=== PATIENT | male | born 1945 | race Caucasian/White ===

== ENCOUNTER 2020-06-10 07:28 | Outpatient (REF) | payer MEDICARE, SELFPAY ==
[2020-06-10 11:27] LABS: Estimated Average Glucose 128 mg/dL; Hemoglobin A1c % 6.1 %
[2020-06-10 11:41] LABS: Alanine Aminotransferase 19 U/L (0-40); Albumin Level 4.4 g/dL (3.5-5.0); Alkaline Phosphatase 78 U/L (39-117); Anion Gap 12 (12-20); Aspartate Amino Transferase 23 U/L (5-37); Blood Urea Nitrogen 22 mg/dL (9-16); Calcium 8.8 mg/dL (8.4-10.2); Carbon Dioxide 27 mmol/L (22-29); Chloride 99 mmol/L (96-108); Cholesterol 274 mg/dL; Estimated Glomerular Filt Rate > 60; Glucose Fasting 128 mg/dL (60-99); HDL Cholesterol 60 mg/dL; LDL Cholesterol Calculated 188 mg/dl; Potassium 4.2 mmol/l (3.3-5.1); Sodium 134 mmol/L (135-145); Total Protein 6.9 g/dL (6.5-8.0); Triglycerides 134 mg/dL
[2020-06-10 11:50] LABS: Creatinine Urine 86.67 mg/dL; Microalbumin Urine < 5.0 mg/L
== END 2020-06-10 07:29 | disposition home or self-care (01) ==
LOC: HO.MANLR 07:28
PROVIDERS: PCP Internal Medicine; Visit Provider Internal Medicine
DX: E11.9 Type 2 diabetes mellitus without complications (principal)
CPT/HCPCS: 80053; 80061; 82043; 83036

== ENCOUNTER 2020-09-29 13:52 | Outpatient (REF) | payer MEDICARE, SELFPAY ==
[2020-09-29 17:52] LABS: Estimated Average Glucose 143 mg/dL; Hemoglobin A1c % 6.6 %
[2020-09-29 17:54] LABS: Alanine Aminotransferase 22 U/L (0-40); Albumin Level 4.2 g/dL (3.5-5.0); Alkaline Phosphatase 77 U/L (39-117); Anion Gap 12 (12-20); Aspartate Amino Transferase 22 U/L (5-37); Blood Urea Nitrogen 26 mg/dL (9-16); Calcium 9.3 mg/dL (8.4-10.2); Carbon Dioxide 26 mmol/L (22-29); Chloride 102 mmol/L (96-108); Estimated Glomerular Filt Rate > 60; Glucose Random 95 mg/dL (60-115); Potassium 4.1 mmol/L (3.3-5.1); Sodium 136 mmol/L (135-145); Total Protein 6.7 g/dL (6.5-8.0)
[2020-09-30 08:30] LABS: ~HepC Num1 0.08 S/CO (0.00-0.79); ~Hepatitis C Antibody Nonreactive (Nonreactive)
== END 2020-09-29 13:53 | disposition home or self-care (01) ==
LOC: HO.MANLDS 13:52
PROVIDERS: PCP Internal Medicine; Visit Provider Internal Medicine
DX: Z01.84 Encounter for antibody response examination (principal); E11.9 Type 2 diabetes mellitus without complications
CPT/HCPCS: 36415; 80053; 83036; 86803

== ENCOUNTER 2021-01-05 07:38 | Outpatient (REF) | payer MEDICARE, SELFPAY ==
[2021-01-05 12:03] LABS: Estimated Average Glucose 154 mg/dL
[2021-01-05 12:10] LABS: Alanine Aminotransferase 20 U/L (0-40); Albumin Level 4.1 g/dL (3.5-5.0); Alkaline Phosphatase 78 U/L (39-117); Anion Gap 15 (12-20); Aspartate Amino Transferase 22 U/L (5-37); Blood Urea Nitrogen 24 mg/dL (9-16); Calcium 9.1 mg/dL (8.4-10.2); Carbon Dioxide 23 mmol/L (22-29); Chloride 105 mmol/L (96-108); Cholesterol 259 mg/dL; Estimated Glomerular Filt Rate > 60; Glucose Random 133 mg/dL (60-115); HDL Cholesterol 49 mg/dL; LDL Cholesterol Calculated 178 mg/dl; Potassium 4.5 mmol/L (3.3-5.1); Sodium 138 mmol/L (135-145); Total Protein 6.6 g/dL (6.5-8.0); Triglycerides 162 mg/dL
[2021-01-05 12:12] LABS: Creatinine Urine 93.52 mg/dL; Microalbumin Urine < 5.0 mg/L
== END 2021-01-05 07:39 | disposition home or self-care (01) ==
LOC: HO.MANLDS 07:38
PROVIDERS: PCP Internal Medicine; Visit Provider Internal Medicine
DX: E11.9 Type 2 diabetes mellitus without complications (principal)
CPT/HCPCS: 36415; 80053; 80061; 82043; 83036

== ENCOUNTER 2021-06-01 07:49 | Outpatient (REF) | payer MEDICARE, SELFPAY ==
[2021-06-01 11:23] LABS: Estimated Average Glucose 148 mg/dL; Hemoglobin A1c % 6.8 %
[2021-06-01 11:35] LABS: Creatinine Urine 98.63 mg/dL
[2021-06-01 11:39] LABS: Alanine Aminotransferase 21 U/L (0-40); Albumin Level 4.4 g/dL (3.5-5.0); Alkaline Phosphatase 84 U/L (39-117); Anion Gap 14 (12-20); Aspartate Amino Transferase 24 U/L (5-37); Bilirubin Total 1.3 mg/dL (0.0-1.0); Blood Urea Nitrogen 22 mg/dL (9-16); Calcium 9.6 mg/dL (8.4-10.2); Carbon Dioxide 26 mmol/L (22-29); Chloride 102 mmol/L (96-108); Cholesterol 278 mg/dL; Estimated Glomerular Filt Rate > 60; Glucose Fasting 152 mg/dL (60-99); HDL Cholesterol 50 mg/dL; LDL Cholesterol Calculated 191 mg/dl; Potassium 4.3 mmol/L (3.3-5.1); Sodium 138 mmol/L (135-145); Total Protein 7.1 g/dL (6.5-8.0); Triglycerides 185 mg/dL
== END 2021-06-01 07:50 | disposition home or self-care (01) ==
LOC: HO.MANLDS 07:49
PROVIDERS: PCP Internal Medicine; Visit Provider Internal Medicine
DX: E11.9 Type 2 diabetes mellitus without complications (principal)
CPT/HCPCS: 36415; 80053; 80061; 82043; 83036

== ENCOUNTER 2021-10-06 07:46 | Outpatient (REF) | payer MEDICARE, SELFPAY ==
[2021-10-06 12:13] LABS: Creatinine Urine 90.68 mg/dL; Microalbumin Urine < 5.0 mg/L
[2021-10-06 12:18] LABS: Estimated Average Glucose 174 mg/dL; Hemoglobin A1c % 7.7 %
[2021-10-06 12:22] LABS: Alanine Aminotransferase 22 U/L (0-40); Albumin Level 4.2 g/dL (3.5-5.0); Alkaline Phosphatase 87 U/L (39-117); Anion Gap 12 (12-20); Aspartate Amino Transferase 23 U/L (5-37); Blood Urea Nitrogen 23 mg/dL (9-16); Calcium 10.6 mg/dL (8.4-10.2); Carbon Dioxide 27 mmol/L (22-29); Chloride 101 mmol/L (96-108); Cholesterol 269 mg/dL; Estimated Glomerular Filt Rate > 60; Glucose Fasting 157 mg/dL (60-99); HDL Cholesterol 55 mg/dL; LDL Cholesterol Calculated 180 mg/dl; Potassium 4.4 mmol/L (3.3-5.1); Sodium 136 mmol/L (135-145); Triglycerides 173 mg/dL
== END 2021-10-06 07:47 | disposition home or self-care (01) ==
LOC: HO.MANLDS 07:46
PROVIDERS: PCP Internal Medicine; Visit Provider Internal Medicine
DX: E11.9 Type 2 diabetes mellitus without complications (principal)
CPT/HCPCS: 36415; 80053; 80061; 82043; 83036

== ENCOUNTER 2022-01-04 07:54 | Outpatient (REF) | payer MEDICARE, SELFPAY ==
[2022-01-04 11:11] LABS: Estimated Average Glucose 169 mg/dL; Hemoglobin A1c % 7.5 %
== END 2022-01-04 07:55 | disposition home or self-care (01) ==
LOC: HO.MANLDS 07:54
PROVIDERS: PCP Internal Medicine; Visit Provider Internal Medicine
DX: E11.9 Type 2 diabetes mellitus without complications (principal)
CPT/HCPCS: 36415; 83036

== ENCOUNTER 2022-04-25 07:36 | Outpatient (REF) | payer MEDICARE, SELFPAY ==
[2022-04-25 11:52] LABS: Alanine Aminotransferase 24 U/L (0-40); Albumin Level 4.1 g/dL (3.5-5.0); Alkaline Phosphatase 86 U/L (39-117); Anion Gap 15 (12-20); Aspartate Amino Transferase 21 U/L (5-37); Bilirubin Total 0.8 mg/dL (0.0-1.0); Blood Urea Nitrogen 17 mg/dL (9-16); Calcium 9.1 mg/dL (8.4-10.2); Carbon Dioxide 27 mmol/L (22-29); Chloride 104 mmol/L (96-108); Cholesterol 244 mg/dL; Estimated Glomerular Filt Rate > 60; Glucose Random 169 mg/dL (60-115); HDL Cholesterol 55 mg/dL; LDL Cholesterol Calculated 164 mg/dl; Potassium 4.6 mmol/L (3.3-5.1); Sodium 141 mmol/L (135-145); Total Protein 6.8 g/dL (6.5-8.0); Triglycerides 129 mg/dL
[2022-04-25 11:57] LABS: Estimated Average Glucose 169 mg/dL; Hemoglobin A1c % 7.5 %
[2022-04-25 12:10] LABS: Creatinine Urine 224.72 mg/dL; Microalbum/Creatinine Ratio Ur 5.7 ug/mg cr
== END 2022-04-25 07:37 | disposition home or self-care (01) ==
LOC: HO.MANLDS 07:36
PROVIDERS: Visit Provider Internal Medicine
DX: E11.9 Type 2 diabetes mellitus without complications (principal)
CPT/HCPCS: 36415; 80053; 80061; 82043; 83036

== ENCOUNTER 2022-05-13 15:46 | Outpatient (REF) | payer MEDICARE, SELFPAY | END 2022-05-13 15:47 | disposition home or self-care (01) | LOC: HO.MANLDS 15:46 | PROVIDERS: Visit Provider Internal Medicine | DX: Z13.89 Encounter for screening for other disorder (principal) ==

== ENCOUNTER 2022-09-06 08:04 | Outpatient (REF) | payer MEDICARE, SELFPAY ==
[2022-09-06 12:13] LABS: Alanine Aminotransferase 21 U/L (0-40); Alkaline Phosphatase 98 U/L (39-117); Anion Gap 14 (12-20); Aspartate Amino Transferase 19 U/L (5-37); Bilirubin Total 0.9 mg/dL (0.0-1.0); Blood Urea Nitrogen 27 mg/dL (9-16); Calcium 9.2 mg/dL (8.4-10.2); Carbon Dioxide 27 mmol/L (22-29); Chloride 104 mmol/L (96-108); Cholesterol 244 mg/dL; Estimated Glomerular Filt Rate > 60; Glucose Random 227 mg/dL (60-115); HDL Cholesterol 51 mg/dL; LDL Cholesterol Calculated 164 mg/dl; Potassium 4.7 mmol/L (3.3-5.1); Sodium 140 mmol/L (135-145); Total Protein 6.5 g/dL (6.5-8.0); Triglycerides 147 mg/dL
[2022-09-06 12:19] LABS: Estimated Average Glucose 223 mg/dL; Hemoglobin A1c % 9.4 %
[2022-09-07 09:02] LABS: Lyme Abs Screen <0.90 index
== END 2022-09-06 08:05 | disposition home or self-care (01) ==
LOC: HO.MANLDS 08:04
PROVIDERS: Visit Provider Internal Medicine
DX: M25.50 Pain in unspecified joint (principal); E11.9 Type 2 diabetes mellitus without complications
CPT/HCPCS: 36415; 80053; 80061; 83036; 86617; 86618

== ENCOUNTER 2022-11-22 07:31 | Outpatient (REF) | payer MEDICARE, SELFPAY ==
[2022-11-22 11:32] LABS: Estimated Average Glucose 177 mg/dL; Hemoglobin A1c % 7.8 %
[2022-11-22 11:51] LABS: Erythrocyte Sedimentation Rate 5 MM/HR (0-15)
[2022-11-22 12:24] LABS: Alanine Aminotransferase 23 U/L (0-40); Albumin Level 4.1 g/dL (3.5-5.0); Alkaline Phosphatase 78 U/L (39-117); Anion Gap 12 (12-20); Aspartate Amino Transferase 21 U/L (5-37); Bilirubin Total 1.1 mg/dL (0.0-1.0); Blood Urea Nitrogen 22 mg/dL (9-16); Calcium 9.2 mg/dL (8.4-10.2); Carbon Dioxide 27 mmol/L (22-29); Chloride 105 mmol/L (96-108); Estimated Glomerular Filt Rate > 60; Glucose Random 164 mg/dL (60-115); Potassium 4.7 mmol/L (3.3-5.1); Sodium 139 mmol/L (135-145); Total Protein 6.5 g/dL (6.5-8.0)
[2022-11-24 08:38] LABS: Lyme Abs Screen <0.90 index
[2022-11-29 14:08] LABS: Babesia IgG <1:64 titer (<1:64); Babesia IgM 1:20 titer (<1:20)
== END 2022-11-22 07:32 | disposition home or self-care (01) ==
LOC: HO.MANLDS 07:31
PROVIDERS: Visit Provider Internal Medicine
DX: E11.9 Type 2 diabetes mellitus without complications (principal); R53.83 Other fatigue
CPT/HCPCS: 80053; 83036; 85652; 86617; 86618; 86666; 86753

== ENCOUNTER 2023-03-22 07:40 | Outpatient (REF) | payer MEDICARE, SELFPAY ==
[2023-03-22 14:08] LABS: Estimated Average Glucose 146 mg/dL; Hemoglobin A1c % 6.7 %
[2023-03-22 14:28] LABS: Alanine Aminotransferase 16 U/L (0-40); Albumin Level 4.1 g/dL (3.5-5.0); Alkaline Phosphatase 66 U/L (39-117); Anion Gap 15 (12-20); Aspartate Amino Transferase 20 U/L (5-37); Blood Urea Nitrogen 25 mg/dL (9-16); Calcium 9.8 mg/dL (8.4-10.2); Carbon Dioxide 25 mmol/L (22-29); Chloride 105 mmol/L (96-108); Estimated Glomerular Filt Rate > 60; Glucose Random 147 mg/dL (60-115); Potassium 4.7 mmol/L (3.3-5.1); Sodium 140 mmol/L (135-145)
== END 2023-03-22 07:41 | disposition home or self-care (01) ==
LOC: HO.MANLDS 07:40
PROVIDERS: Visit Provider Internal Medicine
DX: E11.9 Type 2 diabetes mellitus without complications (principal); R53.83 Other fatigue
CPT/HCPCS: 36415; 80053; 83036

== ENCOUNTER 2023-06-26 07:33 | Outpatient (REF) | payer MEDICARE, SELFPAY ==
[2023-06-26 13:50] LABS: Estimated Average Glucose 157 mg/dL; Hemoglobin A1c % 7.1 % (<6.0)
== END 2023-06-26 07:34 | disposition home or self-care (01) ==
LOC: HO.MANLDS 07:33
PROVIDERS: Visit Provider Internal Medicine
DX: E11.9 Type 2 diabetes mellitus without complications (principal)
CPT/HCPCS: 36415; 83036

== ENCOUNTER 2023-09-05 07:27 | Outpatient (REF) | payer MEDICARE, SELFPAY ==
[2023-09-05 13:56] LABS: MANUAL DIFF FLAG NO
[2023-09-05 14:03] LABS: Basophils Absolute Auto 0.1 X10*3/uL (0.0-0.2); Eosinophils Absolute Auto 0.4 X10*3/uL (0.0-0.4); Eosinophils Percent Auto 6.9 % (0-4); Hematocrit 42.6 % (42.0-52.0); Hemoglobin 14.4 g/dl (14.0-18.0); Imm Gran Abs Auto 0.01 X10*3/uL (0.00-0.03); Imm Gran Pct Auto 0.2 % (0.0-0.4); Lymphocytes Absolute Auto 1.4 X10*3/uL (1.2-4.9); Lymphocytes Percent Auto 24.6 % (20-40); Mean Corpuscular HGB Conc 33.8 g/dl (31.0-36.0); Mean Corpuscular Hemoglobin 33.6 pg (27.0-33.0); Mean Corpuscular Volume 99.3 fL (80.0-98.0); Mean Platelet Volume 10.5 fL (9.4-12.4); Monocytes Absolute Auto 0.4 X10*3/uL (0.1-1.2); Monocytes Percent Auto 7.3 % (2-11); Neutrophils Absolute Auto 3.5 x10*3/uL (2.0-8.3); Platelet Count 160 X10*3/uL (160-400); Red Blood Count 4.29 X10*6/uL (4.60-5.80); Red Cell Distribution Width 12.1 % (11.0-16.0); White Blood Count 5.8 X10*3/uL (4.8-10.8)
[2023-09-05 14:21] LABS: Estimated Average Glucose 174 mg/dL; Hemoglobin A1c % 7.7 % (<6.0)
[2023-09-05 15:05] LABS: Alanine Aminotransferase 20 U/L (0-40); Alkaline Phosphatase 78 U/L (39-117); Anion Gap 12 (12-20); Aspartate Amino Transferase 23 U/L (5-37); Bilirubin Total 0.9 mg/dL (0.0-1.0); Blood Urea Nitrogen 29 mg/dL (9-16); Calcium 9.2 mg/dL (8.4-10.2); Carbon Dioxide 27 mmol/L (22-29); Chloride 101 mmol/L (96-108); Cholesterol 239 mg/dL (<200); Estimated Glomerular Filt Rate > 60; Glucose Random 168 mg/dL (60-115); HDL Cholesterol 53 mg/dL (>40); LDL Cholesterol Calculated 162 mg/dL (<100); Potassium 4.4 mmol/L (3.3-5.1); Sodium 136 mmol/L (135-145); Total Protein 6.8 g/dL (6.5-8.0); Triglycerides 120 mg/dL (<150)
[2023-09-05 15:08] LABS: Prostate Specific Antigen 0.31 ng/mL (<0.05-4.0)
== END 2023-09-05 07:28 | disposition home or self-care (01) ==
LOC: HO.MANLDS 07:27
PROVIDERS: Visit Provider Internal Medicine
DX: E11.9 Type 2 diabetes mellitus without complications (principal); E78.00 Pure hypercholesterolemia, unspecified; Z12.5 Encounter for screening for malignant neoplasm of prostate
CPT/HCPCS: 36415; 80053; 80061; 83036; 84153; 85025

== ENCOUNTER 2023-12-18 07:33 | Outpatient (REF) | payer MEDICARE, SELFPAY ==
[2023-12-18 13:17] LABS: MANUAL DIFF FLAG NO
[2023-12-18 13:56] LABS: Basophils Absolute Auto 0.1 X10*3/uL (0.0-0.2); Eosinophils Absolute Auto 0.4 X10*3/uL (0.0-0.4); Eosinophils Percent Auto 6.3 % (0-4); Hemoglobin 15.8 g/dl (14.0-18.0); Imm Gran Abs Auto 0.02 X10*3/uL (0.00-0.03); Imm Gran Pct Auto 0.3 % (0.0-0.4); Lymphocytes Absolute Auto 1.4 X10*3/uL (1.2-4.9); Lymphocytes Percent Auto 23.2 % (20-40); Mean Corpuscular HGB Conc 34.3 g/dl (31.0-36.0); Mean Corpuscular Hemoglobin 33.9 pg (27.0-33.0); Mean Corpuscular Volume 98.7 fL (80.0-98.0); Mean Platelet Volume 10.5 fL (9.4-12.4); Monocytes Absolute Auto 0.5 X10*3/uL (0.1-1.2); Neutrophils Absolute Auto 3.7 x10*3/uL (2.0-8.3); Neutrophils Percent Auto 61.2 % (45-73); Platelet Count 171 X10*3/uL (160-400); Red Blood Count 4.66 X10*6/uL (4.60-5.80)
[2023-12-18 14:01] LABS: Estimated Average Glucose 174 mg/dL; Hemoglobin A1c % 7.7 % (<6.0)
[2023-12-18 14:09] LABS: Prostate Specific Antigen 0.31 ng/mL (<0.05-4.0)
[2023-12-18 14:13] LABS: Alanine Aminotransferase 21 U/L (0-40); Albumin Level 4.4 g/dL (3.5-5.0); Alkaline Phosphatase 81 U/L (39-117); Anion Gap 16 (12-20); Aspartate Amino Transferase 23 U/L (5-37); Bilirubin Total 0.8 mg/dL (0.0-1.0); Blood Urea Nitrogen 21 mg/dL (9-16); Calcium 10.2 mg/dL (8.4-10.2); Carbon Dioxide 26 mmol/L (22-29); Chloride 103 mmol/L (96-108); Cholesterol 253 mg/dL (<200); Estimated Glomerular Filt Rate > 60; Glucose Random 158 mg/dL (60-115); HDL Cholesterol 57 mg/dL (>40); LDL Cholesterol Calculated 167 mg/dL (<100); Potassium 4.4 mmol/L (3.3-5.1); Sodium 141 mmol/L (135-145); Total Protein 7.5 g/dL (6.5-8.0); Triglycerides 148 mg/dL (<150)
== END 2023-12-18 07:34 | disposition home or self-care (01) ==
LOC: HO.MANLDS 07:33
PROVIDERS: Visit Provider Internal Medicine
DX: Z12.5 Encounter for screening for malignant neoplasm of prostate (principal); E78.00 Pure hypercholesterolemia, unspecified
CPT/HCPCS: 36415; 80053; 80061; 83036; 84153; 85025

== ENCOUNTER 2024-04-12 07:43 | Outpatient (REF) | payer MEDICARE, SELFPAY ==
[2024-04-12 11:12] LABS: MANUAL DIFF FLAG NO
[2024-04-12 11:22] LABS: Basophils Absolute Auto 0.1 X10*3/uL (0.0-0.2); Basophils Percent Auto 0.9 % (0-2); Eosinophils Absolute Auto 0.3 X10*3/uL (0.0-0.4); Eosinophils Percent Auto 5.8 % (0-4); Hematocrit 42.6 % (42.0-52.0); Hemoglobin 14.6 g/dl (14.0-18.0); Imm Gran Abs Auto 0.01 X10*3/uL (0.00-0.03); Imm Gran Pct Auto 0.2 % (0.0-0.4); Lymphocytes Absolute Auto 1.4 X10*3/uL (1.2-4.9); Lymphocytes Percent Auto 25.9 % (20-40); Mean Corpuscular HGB Conc 34.3 g/dl (31.0-36.0); Mean Corpuscular Hemoglobin 33.5 pg (27.0-33.0); Mean Corpuscular Volume 97.7 fL (80.0-98.0); Mean Platelet Volume 10.4 fL (9.4-12.4); Monocytes Absolute Auto 0.4 X10*3/uL (0.1-1.2); Monocytes Percent Auto 7.5 % (2-11); Neutrophils Absolute Auto 3.3 x10*3/uL (2.0-8.3); Neutrophils Percent Auto 59.7 % (45-73); Platelet Count 147 X10*3/uL (160-400); Red Blood Count 4.36 X10*6/uL (4.60-5.80); Red Cell Distribution Width 11.9 % (11.0-16.0); White Blood Count 5.5 X10*3/uL (4.8-10.8)
[2024-04-12 12:02] LABS: Alanine Aminotransferase 18 U/L (0-40); Albumin Level 4.1 g/dL (3.5-5.0); Alkaline Phosphatase 81 U/L (39-117); Anion Gap 11 (12-20); Aspartate Amino Transferase 21 U/L (5-37); Blood Urea Nitrogen 21 mg/dL (9-16); Calcium 9.6 mg/dL (8.4-10.2); Carbon Dioxide 27 mmol/L (22-29); Chloride 105 mmol/L (96-108); Cholesterol 247 mg/dL (<200); Estimated Glomerular Filt Rate > 60; Glucose Random 166 mg/dL (60-115); HDL Cholesterol 51 mg/dL (>40); LDL Cholesterol Calculated 163 mg/dL (<100); Potassium 4.3 mmol/L (3.3-5.1); Sodium 139 mmol/L (135-145); Total Protein 6.8 g/dL (6.5-8.0); Triglycerides 169 mg/dL (<150)
[2024-04-12 12:31] LABS: Estimated Average Glucose 171 mg/dL; Hemoglobin A1c % 7.6 % (<6.0)
== END 2024-04-12 07:44 | disposition home or self-care (01) ==
LOC: HO.WFDLDS 07:43
PROVIDERS: Visit Provider Internal Medicine
DX: Z13.89 Encounter for screening for other disorder (principal)
CPT/HCPCS: 36415; 80053; 80061; 83036; 85025

== ENCOUNTER 2024-12-02 10:05 | Outpatient (REF) | payer MEDICARE, SELFPAY ==
--- OUTSIDE RECORDS SUMMARY | 2024-12-02 10:12 | XMS_ITS | Data Portability ---
Author Organization [facility] Home Service Address [address] [place] [address] Assessment Encounter Date Assessment Date Assessment LastModified by Organization Details LastModified Time 01/15/2024 01/15/2024 [id number] [place] [id number] (DURABLE MEDICAL EQUIPMENT TECHNICIAN) MDM MODERATE MUST MEET 2 OUT OF 3 ELEMENTS: PROBLEMS, DATA OR RISK ELEMENT 1: PROBLEMS ADDRESSED 1 OR MORE CHRONIC ILLNESS WITH EXACERBATION OR 2 OR MORE STABLE CHRONIC ILLNESSES OR 1 UNDIAGNOSED NEW PROBLEM OR 1 ACUTE ILLNESS W/SYMPTOMS OR 1 ACUTE COMPLICATED INJURY ELEMENT 2: DATA MUST MEET 1 OF 3 CATEGORIES CATEGORY 1: REVIEW OF PRIOR EXTERNAL NOTES, REVIEW OF RESULTS, ORDERING OF EACH TEST, ASSESSMENT REQUIRING INDEPENDENT HISTORIAN OR CATEGORY 2: INDEPENDENT INTERPRETATION OF TESTS BY ANOTHER PHYSICIAN OR SPECIALIST OR CATEGORY 3: DISCUSSION OF MGT OR TEST INTERPRETATION W/EXTERNAL PHYSICIAN OR SPECIALIST ELEMENT 3: RISK RISK OF COMPLICATIONS AND/OR MORBIDITY OR MORTALITY OF PATIENT MANAGEMENT PROVIDER MUST THOROUGHLY DOCUMENT EACH ELEMENT THAT IS COVERED Not available 01/15/2024 15:45:22 04/26/2024 04/26/2024 Patient presente d to office today for their Medicare Annual Wellness Visit. Education was provided on healthy nutrition, including a diet rich in fruits and vegetables, minimizing simple carbohydrates, salt, and saturated fats. Encouraged regular cardiovascular exercise such as walking at least 30 minutes daily, 5 times per week. Emphasized preventive health measures and educated pt on fall prevention and community-based lifestyle interventions to help reduce health risks and promote healthy living. [email or web address] Not available 04/25/2024 08:09:51 10/25/2024 10/25/2024 [address] [place] [address] (DURABLE MEDICAL EQUIPMENT TECHNICIAN) MDM HIGH MUST MEET 2 OUT OF 3 ELEMENTS: PROBLEMS, DATA OR RISK ELEMENT 1: PROBLEMS 1 OR MORE CHRONIC ILLNESS W/SEVERE EXACERBATION, PROGRESSION MAY REQUIRE HOSPITAL LEVEL CARE OR 1 ACUTE OR CHRONIC ILLNESS OR INJURY THAT POSES A THREAT TO LIFE OR BODILY FUNCTION ELEMENT 2: DATA: MUST MEET 2 OF 3 CATEGORIES CATEGORY 1 REVIEW OF PRIOR EXTERNAL NOTES REVIEW OF THE RESULTS ORDERING OF EACH TEST ASSESSMENT REQUIRING INDEPENDENT HISTORIAN(S) CATEGORY 2: INDEPENDENT INTERPRETATION OF TESTS BY ANOTHER PROVIDER/SPECIALI ST CATEGORY 3: DISCUSSION OF MGT OR TEST INTERPRETATION W/EXTERNAL PHYSICIAN/SPECIAL IST ELEMENT 3: RISK HIGH RISK OF MORBIDITY FROM ADDITIONAL DIAGNOSTIC TESTING OR TREATMENT PROVIDER MUST THOROUGHLY DOCUMENT EACH ELEMENT THAT IS COVERED The patient presented to their appointment today for multiple concerns requiring moderate to high-level decision making and took over 40-45 minutes for an adequate and appropriate history, exam, assessment and treatment plan. This appointment was done with an established patient. Not available 10/25/2024 15:16:41 Plan of Treatment Reminders Order Date Submit Date Provider Last Modified By Organization Details Last Modified Time Details Appointments FOLLOW UP 2024 03:45P M DR ROMAN Not available Not available Not available Lab TSH + free T4, serum 2024 025 [email or web address] [facility] (Centralized Electronic Ordering - All Locations), Patient Can Go To The Location Of Their Choice, 09/11/2024 14:22:09 magnesium , serum or plasma 2024 025 rtryba [facility] (Centralized Electronic Ordering - All Locations), Patient Can Go To The Location Of Their Choice, 09/11/2024 14:22:09 D-dimer, quant, plasma 2024 025 rtryba [facility] (Centralized Electronic Ordering - All Locations), Patient Can Go To The Location Of Their Choice, 09/11/2024 14:22:09 pro BNP (pro B-type natriuret ic peptide), serum or plasma 2024 025 rtryba [facility] (Centralized Electronic Ordering - All Locations), Patient Can Go To The Location Of Their Choice, 09/11/2024 14:22:09 CMP, serum or plasma 2024 025 PORTIA [facility] (Centralized Electronic Ordering - All Locations), Patient Can Go To The Location Of Their Choice, 09/12/2024 16:45:54 hemoglobi n A1c, QN, blood 2024 025 rtryba [facility] (Centralized Electronic Ordering - All Locations), Patient Can Go To The Location Of Their Choice, [facility] 09/11/2024 14:22:09 CBC w/ auto diff 2024 025 rtryba [facility] (Centralized Electronic Ordering - All Locations), Patient Can Go To The Location Of Their Choice, [id number] 09/11/2024 14:22:09 erythrocy te sedimenta tion rate by westergre n method 2023 024 ATHENAX [facility] (Centralized Electronic Ordering - All Locations), Patient Can Go To The Location Of Their Choice, 04/26/2024 15:12:56 C-reactiv e protein, quantitat bc, serum or plasma 2023 ATHENAFAX [facility] (Centralized Electronic Ordering - All Locations), Patient Can Go To The Location Of Their Choice, [id number] 04/26/2024 15:12:56 hla-B27, blood 2023 024 PORTIA [facility] (Centralized Electronic Ordering - All Locations), Patient Can Go To The Location Of Their Choice, [facility] 07/20/2024 07:48:30 lipid panel, blood 2023 [facility], [address] [place] [address], [place], [address], 04/26/2024 14:20:31 hemoglobi n, gastroint estinal, stool 2023 024 [facility], [address] [place] [address], [address], 04/26/2024 14:20:31 CBC w/ auto diff 2023 024 [facility], [address] [place] [address], [address], 04/26/2024 14:20:31 CMP, serum or plasma 2023 024 [facility], [facility], [place], [address], 04/26/2024 14:20:31 Referral general surgeon referral 2024 jaimie Esparza MD, [address], [place], [address], 10/29/2024 08:28:38 Procedures None recorded. Surgeries None recorded. Imaging MRI, lumbar spine, w/o contrast 2024 025 [facility], [address] [place], [address], 11/19/2024 08:09:10 MRI, brain, w/o contrast - 2nd fax- original sent 11/01/24. Pt has not been called to schedule 2024 025 [facility], [facility] [place], [address], 11/19/2024 08:09:10 CT, chest, w/wo contrast 2024 025 [facility], [address] [place] [address], [address], 09/13/2024 09:12:03 electroca rdiogram, routine ECG, 12 leads min 2024 025 [facility], [address] [facility], [address], [place], [address], 09/13/2024 11:28:25 US, duplex, arterial, lower extremity , complete - progressi ve intermitt ent claudicat ion 2023 024 [facility], [facility] [place], [address], 01/30/2024 16:02:59 Medication Orders tadalafil 20 mg tablet 2023 024 [id number], [address] [facility] [address], [place], [address], 04/26/2024 14:48:05 Patient TargetsNo targets recorded. Patient Instructions Encounter Date Encounter Id Patient Instructions Last Modified By Organization Details Last Modified Time 01/15/2024 [id number] learning about type 2 diabetes Not available 01/15/2024 15:45:01 type 2 diabetes: care instructions Not available 01/15/2024 15:45:01 04/26/2024 [id number] advance care planning: care instructions Not available 04/26/2024 14:15:22 Discussed and explained advance directives such as standard forms to the {{patient* caregi andressa patient and caregiver}}. Face to face discussion lasted for a duration of _8__ minutes. Not available 04/26/2024 14:15:04 10/25/2024 [id number] headache: care instructions [email or web address] Not available 10/25/2024 15:14:59 Reason for Referral General Surgeon Referral for Cyst of abdomen Referring Physician: Kade Roman, Internal Medicine, Encounter Date: 10/25/2024 Results Created Date Observation Date Name Description Value Unit Range Abnormal Flag Note LastModifiedBy Organization Detail LastModifiedTime 02/12/20 24 02/12/2024 US, olesyale x, arter ial, lower extre mity, compl ete No observ ation record ed. [facility] [address], [address], 02/12/2024 22:48:23 09/13/19 25 09/13/2024 elect deepthi massey am, routjag ne ECG, 12 leads min No observ ation record ed. [email or web address] [facility] [address] [place], [address], 09/13/2024 11:37:47 09/23/19 25 09/23/2024 CT, chest , w/ contr ast No observ ation record ed. [email or web address] [facility] [address] [place], [address], 09/25/2024 16:32:04 11/29/19 25 11/25/2024 MRI, brain , w/o contr ast No observ ation record ed. [facility] [address] [facility], [place], [address], 11/28/2024 21:58:05 Result Notes None recorded. Problems Name Problem SNOMED Code Status Onset Date Resolution Date Notes Provider Name and Address Organization Details Recorded Time Impaired fasting glycemia 149902896 Completed 201704/29/2019 Kade Roman, DO [address] [place] [address], [phone], [facility] 9 14:13:08 Type 2 diabetes mellitus 34198404 Active 12/22 Jen mayen [facility] 5 09:05:14 Eczema 29346940 Active 2018 Jen mayen [facility] 5 09:05:14 Low back pain 340396177 Active 2020 Not Available [facility] 3 15:02:30 Hypercho lesterol emia 49148135 Active 2020 Not Available [facility] 3 15:02:30 Deep venous thrombos is of lower extremit y 735734977 Completed 202101/12/2022 Removal Reason: resolved Kade Roman, DO [address] [place] [address], [phone], [facility] 2 14:03:44 Primary erectile dysfunct ion 515617247 Active 2021 Jen mayen [facility] 5 09:05:14 Diffuse pain 4796881 Active 2021 Jen mayen [facility] 5 09:05:14 Infectio n of tooth 979372835 Active 2021 Jen mayen [facility] 5 09:05:22 Chronic sinusiti s 91463651 Active 2021 Jen mayen [facility] 5 09:05:14 Osteoart hritis 161673958 Active 2021 Jenricki Muhammad null, [facility] 5 09:05:14 Gingivit is 77831562 Active 2022 Jenricki Muhammad null, [facility] 5 09:05:22 Deep venous thrombos is of lower extremit y 131251161 Active 2022 Jen Muhammad null, [facility] 5 09:05:14 Anxiety 64437770 Active 2022 Jenricki Muhammad null, [facility] 5 09:05:14 Fatigue 57398215 Active 2022 Jenricki Muhammad null, [facility] 5 09:05:22 Lacerati on of finger of right hand 5840096555 5205539 Active 2022 Jen Muhammad null, [facility] 5 09:05:22 Erectile dysfunct ion 210958707 Active 2022 Jenricki Muhammad null, [facility] 5 09:05:14 Type 2 diabetes mellitus without complica tion 305427901 Active 2023 Jen Muhammad null, [facility] 5 09:05:14 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 42153 Active 2023 Jen Muhammad null, [facility] 5 09:05:14 Intermit tent claudica tion 68312301 Active 2023 Jen Muhammad null, [facility] 5 09:05:14 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 2023 Jen Muhammad null, [facility] 5 09:05:14 Cough 85013961 Active 2024 Jen Muhammad null, [facility] 5 09:05:22 Neuropat hy 301674874 Active 2024 Jen Muhammad null, [facility] 5 09:05:14 Atypical chest pain 393009113 Active 2024 Jen Muhammad null, [facility] 5 09:05:14 Tachycar frederic 4859912 Active 2024 Jenricki Muhammad null, [facility] 5 09:05:14 Muscle pain 50905394 Active 2024 Jenricki Muhammad null, [facility] 5 09:05:14 Excessiv e thirst 08047635 Active 2024 Jenricki Muhammad null, [facility] 5 09:05:22 Weakness of bilatera l lower limb Active 2024 Kade Roman, DO [address] [place] [address], [phone], [facility] 5 15:05:19 Headache 78715971 Active 2024 Kade Roman, DO [address] [place] [address], [phone], [place] [facility] 5 15:05:48 Cyst of abdomen 400850829 Active 2024 Kade Roman, DO [address] [place] [address], [phone], [place] [facility] 5 15:19:27 Problem Notes None recorded. Procedures Surgical History Date Name Laterality Status Provider Name and Address Organization Details Recorded Time 3 Suture/Stap le removal completed ALEXSANDER SABILLON [address] [facility], [place], [address], [place] [facility] 02/15/2023 16:27:37 Imaging Results Imaging Date Name Status LastModified by Organiz ation Details LastModified Time 02/12/2024 US, duplex, arterial, lower extremity, complete completed [facility] [address] [place] [address], [address], 02/12/2024 22:48:23 09/13/2024 electrocardio gram, routine ECG, 12 leads min completed [email or web address] [facility] [address] [place], [address], 09/13/2024 11:37:47 09/23/2024 CT, chest, w/ contrast completed [email or web address] [facility] [address] [place], [address], 09/25/2024 16:32:04 11/25/2024 MRI, brain, w/o contrast completed [facility] [address] [place], [address], 11/28/2024 21:58:05 Procedure Notes None recorded. Medical Equipment None Reported. Allergies Allergen ID Allergen Name Allergen Category Reaction Reaction Severity Criticality Documentation Date Start Date Code Code System Note Provider Name and Address Organization Details Recorded Time 2129 codeine medicatio n Not available Not available Not available 03/26/2018 2670 RxNorm Dennise mayen [facility] 8 16:10:07 2130 Product containin g 3-hydroxy -3-methyl glutaryl- coenzyme A reductase inhibitor (product) medicatio n Not available Not available Not available 03/26/2018 98546 009 SNOMED Dennise mayen [facility] 8 16:10:15 8702 Zithromax medicatio n Not available Not available Not available 09/11/2024 72751 4 RxNorm ALEXSANDER SABILLON [address] [place], [address], [facility] 5 14:17:27 Medications Name Sig Start Date Stop Date Status Note LastModified by Organization Details LastModified Time Prescriptio n - Prior Authorizati on Request 04/29 completed Not Available Not Available Not Available amoxicillin 500 mg capsule TAKE 1 CAPSULE BY MOUTH THREE TIMES A DAY FOR 10 DAYS 11/14 completed Not Available Not Available Not Available doxycycline hyclate 100 mg capsule TAKE 1 CAPSULE BY MOUTH TWICE A DAY FOR 7 DAYS 09/11 completed Not Available Not Available Not Available clindamycin HCl 300 mg capsule TAKE 1 CAPSULE BY MOUTH EVERY 6 HOURS FOR 10 DAYS 04/26 completed Not Available Not Available Not Available sildenafil 50 mg tablet Take 1 tablet every day by oral route for 30 days. 06/11 completed Not Available Not Available Not Available azithromyci n 250 mg tablet TAKE 2 TABLETS BY MOUTH TODAY, THEN TAKE 1 TABLET DAILY FOR 4 DAYS DIRECTED 09/11 completed Not Available Not Available Not Available benzonatate 200 mg capsule TAKE 1 CAPSULE 3 TIMES A DAY BY ORAL ROUTE FOR 7 DAYS, FOR COUGH. 09/11 completed Not Available Not Available Not Available valacyclovi r 1 gram tablet Take 1 tablet 3 times a day by oral route for 14 days. 04/29 completed Not Available Not Available Not Available meloxicam 15 mg tablet TAKE 1 TABLET BY MOUTH EVERY DAY active Not Available Not Available No t Available prednisone 20 mg tablet 07/31 completed Not Available Not Available Not Available fluorouraci l 5 % topical cream APPLY 0.3 GRAM ON THE SKIN DIRECTED FOLLOW WRITTEN INSTRUCTI ONS GIVEN TO YOU AT THE OFFICE VISIT active Not Available Not Available No t Available permethrin 5 % topical cream 10/11 completed Not Available Not Available Not Available amlodipine 5 mg tablet TAKE 1 TABLET BY MOUTH EVERY DAY 11/14 completed Not Available Not Available Not Available sildenafil 100 mg tablet TAKE 1 TABLET BY MOUTH EVERY DAY FOR 30 DAYS 01/14 completed Not Available Not Available Not Available triamcinolo ne acetonide 0.1 % topical cream APPLY THIN COAT TO AFFECTED AREA TWICE A DAY active Not Available Not Available No t Available acetaminoph en ER 650 mg tablet,exte nded release PLEASE SEE ATTACHED FOR DETAILED DIRECTION S 10/10 completed Not Available Not Available Not Available lorazepam 0.5 mg tablet TAKE 1 TABLET BY MOUTH TWICE A DAY NEEDED FOR 7 DAYS 07/10 completed Not Available Not Available Not Available cephalexin 500 mg capsule Take 1 capsule 3 times a day by oral route for 10 days. 06/15 completed Not Available Not Available Not Available hydrocodone -homatropin e 5 mg-1.5 mg/5 mL oral solution Take 5 mL every 4 hours by oral route as needed for 5 days. 12/30 completed Not Available Not Available Not Available mupirocin calcium 2 % topical cream APPLY A SMALL AMOUNT TO THE AFFECTED AREA BY TOPICAL ROUTE 3 TIMES PER DAY FOR 10 DAYS 04/29 completed Not Available Not Available Not Available hydroxyzine HCl 25 mg tablet 04/29 completed Not Available Not Available Not Available ergocalcife rol (vitamin D2) 1,250 mcg (50,000 unit) capsule TAKE 1 CAPSULE BY MOUTH ONE TIME PER WEEK 10/25 completed Not Available Not Available Not Available ibuprofen 600 mg tablet TAKE 1 TABLET BY MOUTH THREE TIMES A DAY WITH FOOD NEEDED 03/31 completed Not Available Not Available Not Available methylpredn isolone 4 mg tablets in a dose pack Take 1 dose pk by oral route. 10/25 completed Not Available Not Available Not Available fluocinonid e 0.05 % topical cream 04/29 completed Not Available Not Available Not Available cefdinir 300 mg capsule TAKE 1 CAPSULE BY MOUTH EVERY 12 HOURS FOR 10 DAYS 10/10 completed Not Available Not Available Not Available metformin ER 500 mg tablet,exte nded release 24 hr TAKE 1 TABLET BY MOUTH EVERY DAY FOR 90 DAYS 10/25 completed Not Available Not Available Not Available doxycycline hyclate 100 mg tablet Take 1 tablet twice a day by oral route for 7 days. 06/27 completed Not Available Not Available Not Available amoxicillin 500 mg-potassiu m clavulanate 125 mg tablet TAKE 1 TABLET BY MOUTH EVERY 12 HOURS FOR 10 DAYS 04/26 completed Not Available Not Available Not Available tadalafil 20 mg tablet TAKE 1 TABLET BY MOUTH ONCE DAILY NEEDED active Not Available Not Available No t Available Fish Oil Take one tablet once a day 09/18 completed Not Available Not Available Not Available multivitami n Take one tablet once a day active Not Available Not Available No t Available hydrocodone 5 mg-acetamin ophen 300 mg tablet Take 1 tablet every 4 hours by oral route for 5 days. 04/29 completed Not Available Not Available Not Available ProAir HFA 90 mcg/actuati on aerosol inhaler inhale 1-2 puffs every 4-6 hours as needed NO SUBSTITUT ION 01/21 completed Not Available Not Available Not Available metformin ER 500 mg 24 hr tablet,exte nded release (gastric retention) TAKE 1 TABLET BY MOUTH EVERY DAY 10/25 /2025 completed Not Available Not Available Not Available Eliquis 5 mg tablet TAKE 1 TABLET BY MOUTH TWICE A DAY 04/29 completed Not Available Not Available Not Available Fluzone High-Dose 8717-1597 (PF) 180 mcg/0.5 mL intramuscul ar syringe 07/31 completed Not Available Not Available Not Available Shingrix (PF) 50 mcg/0.5 mL intramuscul ar suspension, kit 06/15 completed Not Available Not Available Not Available Fluzone High-Dose 7415-7966 (PF) 180 mcg/0.5 mL intramuscul ar syringe 07/31 completed Not Available Not Available Not Available Fluzone High-Dose 2018- (PF) 180 mcg/0.5 mL intramuscul ar syringe 07/31 completed Not Available Not Available Not Available Fluzone High-Dose Quad (PF) 240 mcg/0.7 mL IM syringe TO BE ADMINISTE RED BY PHARMACIS T FOR IMMUNIZAT ION 06/15 completed Not Available Not Available Not Available Vitals Date Recorded Body height Body mass index (BMI) Body weight Heart rate Oxygen saturation Oxygen saturation in Arterial blood by Pulse oximetry Systolic blood pressure Diastolic blood pressure Provider Name and Address Organization Details Last Updated DateTime 4 181.61 cm 24.3 kg/m2 14749.8 5 g 74 /min 98 % 98 % 134 mm[Hg] 82 mm[Hg] Kade Roman, DO [address] [place], [address], [facility] 4 15:01:46 Date Recorded Body height Body mass index (BMI) Body weight Heart rate Oxygen saturation Oxygen saturation in Arterial blood by Pulse oximetry Systolic blood pressure Diastolic blood pressure Provider Name and Address Organization Details Last Updated DateTime 4 181.61 cm 24.9 kg/m2 33403.2 2 g 77 /min 97 % 97 % 140 mm[Hg] 70 mm[Hg] Yue Patricia [facility] 4 14:23:03 Date Recorded Body height Heart rate Oxygen saturation Oxygen saturation in Arterial blood by Pulse oximetry Systolic blood pressure Diastolic blood pressure Provider Name and Address Organization Details Last Updated DateTime 5 181.61 cm 107 /min 97 % 97 % 116 mm[Hg] 64 mm[Hg] Jenricki Muhammad [facility] 5 13:57:23 Date Recorded Body height Heart rate Oxygen saturation Oxygen saturation in Arterial blood by Pulse oximetry Systolic blood pressure Diastolic blood pressure Provider Name and Address Organization Details Last Updated DateTime 5 181.61 cm 78 /min 98 % 98 % 124 mm[Hg] 78 mm[Hg] Jenricki Muhammad [facility] 5 10:30:17 Date Recorded Body height Body mass index (BMI) Body weight Heart rate Oxygen saturation Oxygen saturation in Arterial blood by Pulse oximetry Systolic blood pressure Diastolic blood pressure Provider Name and Address Organization Details Last Updated DateTime 5 181.61 cm 23.8 kg/m2 80384.9 2 g 78 /min 97 % 97 % 126 mm[Hg] 62 mm[Hg] Jen Bess [facility] 5 14:47:53 Social History Question Answer Notes LastModified by Twonesizat ion Details LastModified Time Tobacco Smoking Status Never Smoker Not Available [facility] 06/16/2020 03:36:23 What Was The Date Of Your Most Recent Tobacco Screening? 10/25/2024 [email or web address] Information not available 10/25/2024 Do You Or Have You Ever Used Any Other Forms Of Tobacco Or Nicotine? No Information not available 01/12/2022 Sex: Unknown Functional Status None recorded. Mental Status None recorded. Family History Nothing Reported. Medical History No medical history recorded. Immunizations Vaccine Type Date Status Note Provider Nam e and Address Organization Details Recorded Time Influenza, split virus, quadrivalent, preservative 8 completed Dennise mayen [facility] 05/14/2018 08:09:52 COVID-19, mRNA, LNP-S, PF, 30 mcg/0.3 mL dose 1 completed Chasity mayen [facility] 01/12/2022 14:14:23 COVID-19, mRNA, LNP-S, PF, 30 mcg/0.3 mL dose 1 orlando mayen [facility] 01/12/2022 14:14:30 Influenza, split virus, quadrivalent, preservative 1 completed Chasity Ledesma [facility] 01/12/2022 14:14:43 zoster recombinant 1 completed Chasity Ledesma [facility] 01/12/2022 14:14:59 COVID-19, mRNA, LNP-S, PF, 30 mcg/0.3 mL dose 2 completed Milagro Barker [facility] 06/15/2022 11:04:20 COVID-19, mRNA, LNP-S, PF, 30 mcg/0.3 mL dose 2 completed Chasity Ledesma [facility] 06/15/2022 11:04:28 Influenza, split virus, quadrivalent, preservative 2 completed Milagro Barker [facility] 06/15/2022 11:04:33 influenza, unspecified formulation 3 completed Kade Roman, DO [address] [place] [address], [place], [address] 04/27/2023 14:55:50 SARS-COV-2 (COVID-19) vaccine, UNSPECIFIED 3 completed Paradies Corona [facility] 05/15/2023 15:40:49 Influenza, [place] 4 completed Navi Roman [facility] 04/26/2024 10:41:34 Influenza, split virus, quadrivalent, preservative 9 completed Chasity Ledesma [facility] 07/31/2019 14:35:38 Influenza, split virus, quadrivalent, preservative 0 completed Chasity Ledesma [facility] 04/01/2020 09:19:55 COVID-19, mRNA, LNP-S, PF, 30 mcg/0.3 mL dose 0 completed Chasity Ledesma [facility] 01/27/2021 09:48:11 COVID-19, mRNA, LNP-S, PF, 30 mcg/0.3 mL dose completed Chasity Ledesma [facility] Internal [facility] 01/27/2021 09:48:20 Past Encounters Encounter ID Performer Location Encounter Start Date Encounter Closed Date Diagnosis/Indication Diagnosis SNOMED-CT Code Diagnosis ICD10 Code Diagnosis Note [id number] November [place], [facility] Internal [facility] [address] [facility], [place] [address] 03/27/2018 11:20:45 03/30/2018 09:07:56 Deep venous thrombosis of lower extremity 891337163 I82.402 eliquis 6 months Insect bite - wound 2764 97836 T14.8XXA 2/5 bites appear infected will treat [id number] November [facility] [address] [facility], [place] [address] 06/27/2018 13:46:02 06/27/2018 14:51:46 Deep venous thrombosis of lower extremity 764089302 I82.402 d/c in another 3 months Impaired f asting glycemia 892468274 R73.01 [id number] Keri Daniel NP, S [facility] Internal Medicine [address] [place] [address], ite [facility] [place] [address] 07/31/2018 13:51:58 08/03/2018 12:27:42 Impaired fasting glycemia 683284240 R73.01 do today please Pruritic rash 85528586 L 28.2 Moisturize after shower and before bed, stay hydrated Skin lesion 29791356 L98 .9 on ankle only [id number] Kade Roman DO [facility] Internal [address] [address] 08/24/2018 13:56:48 08/24/2018 15:25:42 Disseminated herpes zoster 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 B02.7 valacyclov ir and has a secondary cellulitis will giv e keflex [id number] Kade Roman DO [facility] Internal Medicine [address] [facility], [place] [address] 08/28/2018 11:34:09 08/28/2018 12:20:51 Disseminated herpes zoster 88282346 B02.7 valacyclov ir and has a secondary cellulitis will giv e keflex but has not improved to any signif effect so we will ask a dermatolog ist to see him arlene [id number] Kade Roman [facility] Internal Medicine [address] [facility] [address],[place] [address] 10/10/2018 15:27:52 10/10/2018 16:29:25 Cramp in lower limb 642165943 R25.2 magnesium and potassium Deep venou s thrombosis of lower extremity 460873225 I82.409 is back on eliquis Eczema 79716912 L30.[address] el morris working [facility] er ectile dysfunction 837396329 N52.9 has been having difficulty will try sildenafil [id number] Kade Roman [facility] Internal Medicine [address] [facility] [address],[place] [address] 04/29/2019 13:41:58 04/29/2019 14:26:42 Type 2 diabetes mellitus 00755735 E11.9 long detailed discussion s >20 min Eczema 03594246 L30.[address] el morris working [facility] [id number] Kade Roman [facility] Internal Medicine [address] [facility] [address],[place] [address] 07/31/2019 14:32:22 07/31/2019 15:06:41 Type 2 diabetes mellitus 02856971 E11.9 long detailed discussion s >20 min re diet and exercise relates that he has lost almost 20 lbs Eczema 10902312 L30.[address] el morris working [facility] [id number] November [place] [facility] Internal Medicine [address] [facility] [address],[place] [address] 09/18/2019 14:30:19 09/18/2019 14:58:45 Type 2 diabetes mellitus 31077169 E11.9 Deep venou s thrombosis of lower extremity 416499548 I82.409 d/c in another 3 months Cough 80394862 R05 [id number] Kade Roman [facility] Internal Medicine [address] [facility] [address],[place] [address] 12/31/2019 11:44:14 12/31/2019 12:14:11 Abscess of groin 43286756 L02.214 will need anbiot and a referral to gen surg for I and D [id number] Kade Roman [facility] Internal Medicine [address] [facility] [address],[place] [address] 01/22/2020 14:18:57 01/22/2020 15:04:40 Infection of sebaceous cyst 345503224 L72.3 we need to have this removed so we will refer Unintentio nal weight loss 890068390 R63.4 but seems to have stabilized no overt issues otherwise [id number] Kade Roman [facility] Internal Medicine [address] [facility] [address],[place] [address] 06/15/2020 13:51:53 06/15/2020 15:08:48 Type 2 diabetes mellitus 54260111 E11.9 long detailed discussion s >20 min re diet and exercise relates that he had lost almost 20 lbs but has gained bacepatihk a lot and gluc up to a1c 6.1 Primary er ectile dysfunction 009872708 N52.9 has been having difficulty will continue sildenafil [id number] Kade Roman [facility] Internal Medicine [address] [facility] [address],[place] [address] 10/06/2020 14:26:56 10/06/2020 15:06:28 Type 2 diabetes mellitus 14812869 E11.9 long detailed discussion s >20 min re diet and exercise relates that he had lost almost 20 lbs but has gained bacepatihk a lot and gluc up to a1c 6.1 Low back pain 701269780 M54.5 prob latissimus strain from excessive mopping at work told to take ibuprof and tylenol and to use this tid for 1 week and see if this is ok Eczema 37623675 L30.[address] [facility] working good [id number] Kade Roman [facility] Internal Medicine [address] [facility] [address],[place] [address] 02/01/2021 14:53:44 02/01/2021 15:55:36 Type 2 diabetes mellitus 21488065 E11.9 long detailed discussion s >20 min re diet and exercise relates that he had lost almost 20 lbs but has gained back his wgt and gluc up to a1c 7.0we will discuss on better diet and better way of treatment if he stays high Primary er ectile dysfunction 185766540 N52.9 has been having difficulty will continue sildenafil Deep venou s thrombosis of lower extremity 384338685 I82.409 is back on eliquis Hypercholesterolemia 136 69375 E78.00 told him that he needs to be more careful he is not interested in starting a med we will rechk in may Kade Roman [facility] Internal Medicine [address] [facility],[place] [address] 06/11/2021 14:31:36 06/11/2021 14:59:46 Type 2 diabetes mellitus 98120045 E11.9 long detailed discussion s >20 min re diet and exercise we will discuss on better diet and better way of treatment if he stays high Hypercholesterolemia 136 15773 E78.00 told him that he needs to be more careful he is notable to take statins due to liver irritation [id number] Kade Roman [facility] Medicine [address] [facility],[place] [address] 10/11/2021 13:44:54 10/12/2021 15:08:55 Type 2 diabetes mellitus 09853286 E11.9 long detailed discussion s >20 min re diet and exercisea1 c is 7.7we will discuss on better diet and better way of treatment if he stays high Hypercholesterolemia 136 24702 E78.00 told him that he needs to be more careful he is notable to take statins due to liver irritation discussed at length Deep venou s thrombosis of lower extremity 524460085 I82.409 is back on eliquis [id number] Kade Roman [facility] Medicine [address] [facility] [address],[place] [address] 01/12/2022 13:42:25 01/12/2022 15:08:58 Hypercholesterolemia 93983462 E78.00 told him that he needs to be more careful he is notable to take statins due to liver irritation discussed at length Type 2 frederic betes mellitus 34927824 E11.9 long detailed discussion s >20 min re diet and exercisea1 c is 7.5 still ok was 7.7 needs to get back to 6'swe will discuss on better diet and better way of treatment if he stays high Depression screening 171 506059 Z13.31 score of 1 Active or passive immunization 262246094 Z23 patient advised of due vaccines (tdap, pneu 13 & 23, shingles) Eczema 15002765 L30.[address] el morris working good Low back pain 135255488 M54.50 symptoms seem to be better than in the winter Primary er ectile dysfunction 648215473 N52.9 has been having difficulty will continue sildenafil [id number] Kade Roman [facility] Internal Medicine [address] [facility],[place] [facility] [place] [place] [address] 04/26/2022 14:02:04 04/26/2022 15:55:16 Type 2 diabetes mellitus 17850647 E11.9 long detailed discussion s >20 min re diet and exercisea1 c is still 7.5 and before this was 7.5 still ok was 7.7 needs to get back to 6'swe will discuss on better diet and better way of treatment if he stays high Eczema 73893988 L30.[address] el morris working good doing great now Diffuse pain 4604444 R52 having bilateral knee and hip and flank pain all of these areas are directly on bony prominence s [id number] Kade Roman [facility] Internal Medicine [address] [facility] [address],[place] [employer] [place] [address] 05/13/2022 15:01:41 05/13/2022 16:31:02 Infection of tooth 092022056 K04.7 he will be on cefdinir Chronic sinusitis 614234 00 J32.9 he understand s to call if he gets any diarrhea etc Osteoarthritis 311470885 M19.90 noted multiple areas we will try to treat as we need will use prn nsaid and see how he does [id number] Kade Roman [facility] Medicine [address] [facility] [address],[place] [facility] [place] [address] 10/10/2022 14:50:55 10/10/2022 15:41:10 Type 2 diabetes mellitus 05333020 E11.9 re need for good scheduled eating and not skipping meals long discussion discussed a1c is at 9.4 last month now his diet is not so goodtold he is hurting himself and will pay for the high sugarsPRIO Ra1c is still 7.5 and before this was 7.5 still ok was 7.7 needs to get back to 6'swe will discuss on better diet and better way of treatment if he stays high Deep venou s thrombosis of lower extremity 505566832 I82.409 tequilaamythu Advance care planning 71 8294137 Z71.89 utd Gingivitis 07734270 K05. 10 Anxiety 43025505 F41.9 will use as back up [id number] Kade Roman DO [facility] Internal Medicine [address] [facility],[place] [facility] [place] [address] 11/14/2022 15:06:27 11/14/2022 15:56:45 Anxiety 38468240 F41.9 will use as back up Type 2 frederic betes mellitus 03862911 E11.9 he needs to do the a1c should be much better PRIOR : re need for good scheduled eating and not skipping meals long discussion discussed a1c is at 9.4 last month now his diet is not so goodtold he is hurting himself and will pay for the high sugarsPRIO Ra1c is still 7.5 and before this was 7.5 still ok was 7.7 needs to get back to 6'swe will discuss on better diet and better way of treatment if he stays high Fatigue 43495789 R53.83 having muscle pain as well having a hard time [id number] ALEXSANDER SABILLON [facility] Internal Medicine [address] [facility],[place] [address] 02/15/2023 15:32:45 02/17/2023 09:03:21 Removal of suture 20760284 Z48.02 removed Laceration of finger of right hand 4565457957 8608134 S61.210D removed [id number] Kade Roman [facility] Internal Medicine [address] [facility],[place] [address] 03/31/2023 14:46:05 03/31/2023 16:04:48 Type 2 diabetes mellitus 92785990 E11.9 a1c is down to 6.7!!!!! from 7.8 PRIOR : re need for good scheduled eating and not skipping meals long discussion discussed cont to eat good diet h [id number] is still 7.5 and before this was 7.5 still ok was 7.7 needs to get back to 6'swe will discuss on better diet and better way of treatment if he stays high Osteoarthritis 453435098 M19.90 noted multiple areas we will try to treat as we need we will cont to use the meloxicam as needed [id number] Kade Roman DO [facility] Internal Medicine [address] [facility],[place] [address] 07/10/2023 14:08:44 07/10/2023 14:51:17 Hypercholesterolemia 76022072 E78.00 told him that he needs to be more careful he is notable to take statins due to liver irritation discussed at length Type 2 frederic betes mellitus 29765608 E11.9 a1c is now up to 7.1 due to diet indiscreti on PRIOR :long discussion re need for better diet.re need for good scheduled eating and not skipping meals long discussion discussed cont to eat good diet h Erectile dysfunction 860 368064 F52.21 he will try this as the sildenafil was not too helpful [id number] Kade Roman DO [facility] Internal Medicine [address] [facility],[place] [address] 09/13/2023 08:27:18 09/13/2023 16:37:42 Type 2 diabetes mellitus without complication 787566143 E11.9 not controlled and has gained weight 5lbs and a1c has gone upsee below he will manage with diet control Deep venou s thrombosis of lower extremity 435471684 I82.409 resolved Type 2 frederic betes mellitus 87518682 E11.9 a1c is now up to 7.7 was 7.1 due to diet indiscreti on PRIOR :long discussion re need for better diet.re need for good scheduled eating and not skipping meals long discussion discussed cont to eat good diet h Fatigue 18767340 R53.83 relates this happens with elevated glucose Eczema 47093809 L30.[address] [facility] working good doing great now [id number] Kade Roman DO [facility] Internal Medicine [address] [facility],[place] [address] 01/15/2024 14:50:17 01/15/2024 15:59:33 Depression screening 167777380 Z13.31 Type 2 frederic betes mellitus 36768142 E11.9 a1c is now up to 7.7 was 7.1 due to diet indiscreti on PRIOR :long discussion re need for better diet.re need for good scheduled eating and not skipping meals long discussion discussed cont to eat good diet 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 1122299027 69352 G57.61 referral to kiki Intermitte nt claudication 34546145 I73.9 needs a vascular study [id number] Kade Roman DO [facility] Internal Medicine [address] [facility],[place] [facility] [address] 04/26/2024 14:11:54 04/26/2024 14:51:17 Adult health examination 645862937 Z00.01 here and is doing ok overall Screening for cardiovascular system disease 438443327 Z13.6 Screening for malignant neoplasm of colon 561144611 Z12.11 Hypercholesterolemia 136 90896 E78.00 told him that he needs to be more careful he is notable to take statins due to liver irritation discussed at length Intermitte nt claudication 87217343 I73.9 needs a vascular study Type 2 frederic betes mellitus 33763011 E11.9 a1c is now up to 7.7 was 7.1 due to diet indiscreti on PRIOR :long discussion re need for better diet.re need for good scheduled eating and not skipping meals long discussion discussed cont to eat good diet h Inflammato ry polyarthropathy 797934356 M06.4 Erectile dysfunction 860 465957 F52.21 he will try this as the sildenafil was not too helpful [id number] [facility] Medicine [address] [facility],[place] [address] 09/11/2024 13:48:00 09/11/2024 14:28:24 Neuropathy 145810994 G62.89 nerve pain throughout , radiates from the low back Atypical chest pain 1025 96065 R07.89 agreed to work uprecommen ded CT and EKG assessment to r/o cardiac etiology Type 2 frederic betes mellitus 52740059 E11.9 needs lab work Tachycardia 2374015 R00. 0 racing heart, no arrhythmia detected [id number] ALEXSANDER SABILLON Internal Medicine [address] [facility],[place] [address] 09/17/2024 10:20:02 09/17/2024 12:21:32 Type 2 diabetes mellitus 80920802 E11.65 will set up with standing orderscont on metforminr echeck CMP in a few weeks to see how his glucose levels Muscle pain 15103745 M79 .18 worsened by excess sugar Excessive thirst 8946081 7 R63.1 related to the sugar [id number] Kade Roman DO [facility] Internal Medicine [address] [facility],[place] [address] 10/25/2024 14:29:01 10/25/2024 15:24:59 Depression screening 623959526 Z13.31 equiv Weakness o f bilateral lower limb 7502758974 62623 M62.81 here and worried about the pain legs getting worse and episodes of weakness are becoming more frequent Headache 56210104 R51.9 Cyst of abdomen 63096535 0 R19.00 Health Concerns Section Related Observation LastModified by Organization Detai ls LastModified Time None Recorded Concern Status LastModified by Organization Details LastModified Time None Recorded Advance Directives Directive None Recorded Payers Encounter Date Sequence Insurance Name Policy Number Policy Falcon Covered Member ID Falcon Member ID Guarantor Name 01/15/2024 1 MEDICARE B-[place]: [facility] Minh Pickard Jameson [id number] Minh Jameson 01/15/2024 2 [facility] Minh Pickard Trino [id number] Minh Jameson 04/26/2024 1 MEDICARE B-[place]: [facility] Minh Pickard Trino [id number] Minhcoleen Jameson 04/26/2024 2 [facility] Minh Pickard Trino [id number] Minh Jameson 09/11/2024 1 [place]: [facility] Minh Pickard Trino [id number] Mihncoleen Jameson 09/11/2024 2 [facility] Minh Pickard Trino [id number] Minh Jameson 09/17/2024 1 [facility] Minh Melly Trino [id number] Minh Jameson 09/17/2024 2 [facility] Minh Jameson [id number] Minh Jameson 10/25/2024 1 MEDICARE B-[place]: [facility] Minh Jameson [id number] 07 Minh Jameson 10/25/2024 2 [facility] Minh Jameson [id number] Minh Jameson Notes Date Note Type Note Provider Name a nd Address Organization Details Recorded Time 4 text/html here for lux relates that he is wondering about the labreviewed lab in detail kidneys [id number] is up to 7.7creat good HDL 57 LDL 167 seen by podiatry and opthamology also relates that he has noticed pain in back of calves when walking and teri going up inclinerelates feet and hands wake him up at night very stiff Kade Roman, DO [address] [place], [address], [facility] 01/15/2024 15:45:45 4 text/html Medicare Annual Wellness VisitReported bypatient.Diet and Nutrition:healthy diet Fracture Risk:no history of fractures; no recent explained fracture; no sudden unexplained fractures; no previous musculoskeletal injuries Physical Activity:exercises on a regular basis; recent increase in physical activity; good physical condition Depression Risk:never feels sad, empty, or tearful; no loss of interest in activities; no significant changes in weight; no sleep disturbances or insomnia; no agitation; no loss of energy; no feelings of worthlessness or guilt; no thoughts of suicide; no history of depression; no history of mood disorders Orientation:no disorientation to time; no disorientation to date; no disorientation to place Concentration and Memory:no decreased concentrating ability; no memory lapses or loss; does not forget words Speech/Motor difficulties:no speech difficulties; no difficulty expressing formulated concepts; no difficulty with fine manipulative tasks; no difficulty writing/copying; no slowed reaction time; does not knock things over when trying to pick them up Hearing:no loss of hearing Vision:no vision problems Activities of Daily Living:able to bathe with limited or no assistance; able to contol urination and bowels; able to dress with limited or no assistance; able to feed self with limited or no assistance; able to get out of chair or bed with limited or no assistance; able to groom with limited or no assistance; able to toilet with limited or no assistance Instrumental Activities of Daily Living:able to do house work with limited or no assistance; able to grocery shop with limited or no assistance; able to manage medications with limited or no assistance; able to manage money with limited or no assistance; able to prepare meals with limited or no assistance; able to use the phone with limited or no assistance Falls Risk Assessment:no frequent falls while walking; no fall in the past year; no fall since last visit; no dizziness/vertigo Home Safety:no unsafe lu hazzards; no unsafe stairs; no unsafe gas appliances; working smoke/CO detectors; wears protective head gear for biking/high velocity; use of seatbelts; practicing 'safer sex'; no vision or hearing loss while driving; no fire arms; has hand bars in the bathroom/shower; good lighting in the homeNotes:relates has episodes of a pain occurence that stats in feet and goes to back and is extreme and he falls asleep for 45min then when he wakes up he feels it pass out of his hands Kade Roman DO [address] [facility], [place], [address], [facility] 04/26/2024 14:48:58 5 text/html c/o sob and cough the patient is reporting central chest pain, sob with activity, headache, cough, and slight vision changesthe patient reports that this started about a week or so agothe patient reports that he has been able to walk and ride his bike without issues the patient BP is lowhe is tachycardic in office with racing heart on examdoesn't feel it right nowRRR recommended fu work up, r/o cardiac component def has has neuropathic pain, possible from the diabetes ALEXSANDER SABILLON [address] [facility], [place], [address], [facility] 09/11/2024 14:25:52 5 text/html f/u appt the patient reports that he still has the chest discomfort, EKG was normal which is reassuringthe patient did have a very high glucose 330 and his A1c was 9.5%patient agreed to start medication his BP is good in the officeoccasional elevation in his BP but stable here when he is checked working on his diet to get rid of the junk food (cookies, sweets) the patient needs to get the CT for his chest pain (?interstitial lung disease, residual inflammation from infection, RAD)possible combo with GERD from the excess sugar in his body HR is working on scheduling his CT does report acid reflux, thirst, easier fatigue, muscle pain, brain fog ALEXSANDER SABILLON [address] [place], [address], [facility] 09/17/2024 11:00:37 5 text/html f/u appt has continued to lose wgt now lost 14 lbsrelates has been fatigued light headed palpitationshad a respiratory illness for a month and is finally feeling betterrelates feels his calf muscles have a tight feeling and is up to kneestight feeling and pain relates up his body to his neck and then it makes him pass out the patient reports that he still has the chest discomfort, EKG was normal which is reassuringthe patient did have a very high glucose 330 and his A1c was 9.5%patient agreed to start medication his BP is good in the officeoccasional elevation in his BP but stable here when he is checked working on his diet to get rid of the junk food (cookies, sweets) the patient needs to get the CT for his chest pain (?interstitial lung disease, residual inflammation from infection, RAD)possible combo with GERD from the excess sugar in his body HR is working on scheduling his CT does report acid reflux, thirst, easier fatigue, muscle pain, brain fog Kade Roman, DO [address] [place], [address], [facility] 10/25/2024 15:21:19
[2024-12-02 10:55] LABS: MANUAL DIFF FLAG NO
[2024-12-02 10:58] LABS: Basophils Percent Auto 0.5 % (0-2); Eosinophils Absolute Auto 0.4 X10*3/uL (0.0-0.4); Eosinophils Percent Auto 4.4 % (0-4); Hematocrit 41.4 % (42.0-52.0); Hemoglobin 13.9 g/dl (14.0-18.0); Imm Gran Abs Auto 0.02 X10*3/uL (0.00-0.03); Imm Gran Pct Auto 0.2 % (0.0-0.4); Lymphocytes Absolute Auto 1.4 X10*3/uL (1.2-4.9); Lymphocytes Percent Auto 17.8 % (20-40); Mean Corpuscular HGB Conc 33.6 g/dl (31.0-36.0); Mean Corpuscular Hemoglobin 32.7 pg (27.0-33.0); Mean Corpuscular Volume 97.4 fL (80.0-98.0); Monocytes Absolute Auto 0.7 X10*3/uL (0.1-1.2); Monocytes Percent Auto 8.8 % (2-11); Neutrophils Absolute Auto 5.5 x10*3/uL (2.0-8.3); Neutrophils Percent Auto 68.3 % (45-73); Platelet Count 141 X10*3/uL (160-400); Red Blood Count 4.25 X10*6/uL (4.60-5.80); Red Cell Distribution Width 11.7 % (11.0-16.0); White Blood Count 8.1 X10*3/uL (4.8-10.8)
[2024-12-02 11:07] LABS: Estimated Average Glucose 200 mg/dL; Hemoglobin A1C 255.9984 umol/L; Hemoglobin A1c % 8.6 % (<6.0); Total Hemoglobin (HGBA1C) 3617.3017 umol/L
[2024-12-02 11:31] LABS: Alanine Aminotransferase 17 U/L (0-40); Alkaline Phosphatase 92 U/L (39-117); Anion Gap 12 (12-20); Aspartate Amino Transferase 22 U/L (5-37); Blood Urea Nitrogen 23 mg/dL (9-16); Calcium 9.2 mg/dL (8.4-10.2); Carbon Dioxide 26 mmol/L (22-29); Chloride 106 mmol/L (96-108); Estimated Glomerular Filt Rate > 60; Glucose Random 198 mg/dL (60-115); Potassium 4.2 mmol/L (3.3-5.1); Sodium 140 mmol/L (135-145); Total Protein 6.8 g/dL (6.5-8.0)
[2024-12-02 11:37] LABS: Erythrocyte Sedimentation Rate 16 MM/HR (0-15)
[2024-12-02 14:10] LABS: Creatinine Urine 127.22 mg/dL
== END 2024-12-02 10:06 | disposition home or self-care (01) ==
LOC: HO.WFDLDS 10:05
PROVIDERS: Visit Provider Internal Medicine
DX: E11.65 Type 2 diabetes mellitus with hyperglycemia (principal)
CPT/HCPCS: 36415; 80053; 82043; 82570; 83036; 85025; 85652

== ENCOUNTER 2024-12-12 09:19 | Outpatient (REF) | payer MEDICARE, SELFPAY ==
--- OUTSIDE RECORDS SUMMARY | 2024-12-12 10:08 | XMS_ITS | Data Portability ---
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 Not available 10/25/2024 15:16:41 12/11/2024 12/11/2024 The patient presented to their appointment today for multiple concerns requiring moderate to high-level decision making and took over 40-45 minutes for an adequate and appropriate history, exam, assessment and treatment plan. This appointment was [place] with [place]. 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) [facility] HIGH MUST MEET 2 OUT OF 3 [...] EACH ELEMENT THAT IS COVERED Not available 12/11/2024 16:16:21 Plan of Treatment Reminders Order Date Submit Date Provider Last Modified By Organization Details Last Modified Time Details Appointments FOLLOW UP 15 2024 02:45P Delmer ROMAN Not available Not available Not available Lab CMP, serum or plasma 2024 025 [facility], [address] [place] [address], [place], [address], 12/11/2024 16:20:22 hemoglobi n A1c, QN, blood 2024 025 [facility], [address] [place] [address], [address], 12/11/2024 16:20:22 C-peptide , serum 2024 025 [facility], [address] [place] [address], [id number], 12/11/2024 16:20:22 insulin, serum 2024 025 [facility], [address] [place] [address], [id number], 12/11/2024 16:20:22 TSH + free T4, serum 2024 025 [...] 16:45:54 hemoglobi n A1c, QN, blood 2024 [email or web address] [facility] (Centralized Electronic Ordering - All Locations), Patient Can Go To The Location Of Their Choice, 09/11/2024 14:22:09 CBC w/ auto diff 2024 [email or web address] [facility] (Centralized Electronic Ordering - All Locations), Patient Can Go To The Location Of Their Choice, 09/11/2024 14:22:09 erythrocy te sedimenta tion rate by ed n method 2023 024 ATHENAFAX [facility] (Centralized Electronic Ordering - All Locations), Patient Can Go To The Location Of Their Choice, 04/26/2024 15:12:56 C-reactiv e protein, quantitat bc, serum or plasma 2023 024 ATHENAFAX [facility] (Centralized Electronic Ordering - All Locations), Patient Can Go To The Location Of Their Choice, [id number] 04/26/2024 15:12:56 hla-B27, blood 2023 024 PORTIA [facility] (Centralized Electronic Ordering - All Locations), Patient Can Go To The Location Of Their Choice, [id number] 07/20/2024 07:48:30 lipid panel, blood 2023 024 [facility], [address] [place] [address], [address], 04/26/2024 14:20:31 hemoglobi n, gastroint estinal, stool 2023 024 [facility], [address] [place] [address], [address], 04/26/2024 14:20:31 CBC w/ auto diff 2023 024 [facility], [address] [place] [address], [address], 04/26/2024 14:20:31 CMP, serum or plasma 2023 024 [facility], [address] [place] [address], [place], [address], 04/26/2024 14:20:31 Referral general surgeon referral 2024 025 [email or web address] Esparza MD, [address], [place], [address], 10/29/2024 08:28:38 Procedures None recorded. Surgeries None recorded. Imaging MRI, lumbar spine, w/o contrast 2024 025 [email or web address] [facility], [address] [place], [address], 11/19/2024 08:09:10 MRI, brain, w/o contrast - 2nd fax- original sent 11/01/24. Pt has not been called to schedule 2024 025 [facility], [address], [place], [address], 11/19/2024 08:09:10 CT, chest, w/wo contrast 2024 025 [facility], [address], [place], [address], 09/13/2024 09:12:03 electroca rdiogram, routine ECG, 12 leads min 2024 025 [facility], [address], [address], [place], [address], 09/13/2024 11:28:25 Medication Orders Eliquis [address] mg tablet [address] [facility][id number], [address] [place], [address], 12/11/2024 16:14:03 tadalafil 20 mg tablet [address] [facility][id number], [address] [place], [address], 04/26/2024 14:48:05 Patient TargetsNo targets recorded. Patient Instructions Encounter Date Encounter Id Patient Instructions Last Modified By Organization Details Last Modified Time 04/26/2024 [id number] advance care planning: care instructions Not available 04/26/2024 14:15:22 Discussed and explained advance directives such as standard forms to the {{patient* caregi andressa patient and caregiver}}. Face to face discussion lasted for a duration of _8__ minutes. Not available 04/26/2024 14:15:04 10/25/2024 [id number] headache: care instructions Not available 10/25/2024 15:14:59 12/11/2024 [id number] learning about high blood sugar Not available 12/11/2024 16:14:01 Reason for Referral General Surgeon Referral for Cyst of abdomen Referring Physician: Kade Roman, Internal Medicine, Encounter Date: 10/25/2024 Results Created Date Observation Date Name Description Value Unit Range Abnormal Flag Note LastModifiedBy Organization Detail LastModifiedTime 09/13/1909/13/2024 socorro massey am, howie ne ECG, 12 leads min No observ ation record ed. [email or web address] [facility] [address] [place] [address], [address], 09/13/2024 11:37:47 09/23/19 25 09/23/2024 CT, chest , w/ contr ast No observ ation record ed. [email or web address] [facility] [address] [place] [address], [address], 09/25/2024 16:32:04 11/29/19 25 11/25/2024 MRI, brain , w/o contr ast No observ ation record ed. [address], [address], 11/28/2024 21:58:05 12/06/19 25 12/03/2024 US, duple x, arter ial, lower extre mity, compl ete No observ ation record ed. Not Available 2024 19:08:14 Result Notes None recorded. Problems Name Problem SNOMED Code Status Onset Date Resolution Date Notes Provider Name and Address Organization Details Recorded Time Impaired fasting glycemia 416852304 Completed 201704/29/2019 Kade Roman, DO [address] [place], [address], [facility] 9 14:13:08 Type 2 diabetes mellitus 38288556 Active 12/22 Jen mayen [facility] 5 09:05:14 Eczema 00930003 Active 2018 Jen mayen [facility] 5 09:05:14 Low back pain 743267320 Active 2020 Not Available [facility] 3 15:02:30 Hypercho lesterol emia 20937056 Active 2020 Not Available [facility] 3 15:02:30 Deep venous thrombos is of lower extremit y 869166749 Completed 202101/12/2022 Removal Reason: resolved Kade Roman, DO [address] [place], [address], [facility] Internal [facility] 2 14:03:44 Primary erectile dysfunct ion 370326250 Active 2021 Jen Muhammad null, [facility] 5 09:05:14 Diffuse pain 5793370 Active 2021 Jen Muhammad null, [facility] 5 09:05:14 Infectio n of tooth 091422003 Active 2021 Jen Muhammda null, [facility] 5 09:05:22 Chronic sinusiti s 92423057 Active 2021 Jen Muhammad null, [facility] 5 09:05:14 Osteoart hritis 471381572 Active 2021 Jen Muhammad null, [facility] 5 09:05:14 Gingivit is 19644447 Active 2022 Jen Muhammad null, [facility] 5 09:05:22 Deep venous thrombos is of lower extremit y 864322166 Active 2022 Jen Muhammad null, [facility] 5 09:05:14 Anxiety 22421294 Active 2022 Jen Muhammad null, [facility] 5 09:05:14 Fatigue 31495671 Active 2022 Jen Muhammad null, [facility] 5 09:05:22 Lacerati on of finger of right hand 7952379831 5663387 Active 2022 Jen Muhammad null, [facility] 5 09:05:22 Erectile dysfunct ion 538615409 Active 2022 Jenricki Muhammad null, [facility] 5 09:05:14 Type 2 diabetes mellitus without complica tion 617307685 Active 2023 Jen Jb null, [facility] 5 09:05:14 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 Active 2023 Jen Jb null, [facility] 5 09:05:14 Intermit tent claudica tion 77561021 Active 2023 Jen Jb null, [facility] 5 09:05:14 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 Active 2023 Jenricki Muhammad null, [facility] 5 09:05:14 Cough 56151593 Active 2024 Jenricki Muhammad null, [facility] 5 09:05:22 Neuropat hy 837463227 Active 2024 Jen Jb null, [facility] 5 09:05:14 Atypical chest pain 404362927 Active 2024 Jenricki Mhuammad null, [facility] 5 09:05:14 Tachycar frederic 2226136 Active 2024 Jenricki Muhammad null, [facility] 5 09:05:14 Muscle pain 45914302 Active 2024 Jen Muhammad null, [facility] 5 09:05:14 Excessiv e thirst 84613650 Active 2024 Jenricki Muhammad null, [facility] 5 09:05:22 Weakness of bilatera l lower limb Active 2024 Kade Roman DO [address] [place] [address], [address], [facility] 5 15:05:19 Headache 41503819 Active 2024 Kade Roman DO [address] [place], [address], [facility] 5 15:05:48 Cyst of abdomen 673431101 Active 2024 Kade Roman, DO [address] [place] [address], [address], [facility] 5 15:19:27 Hypergly cemia 12745027 Active 2024 Kade Roman, DO [address] [place] [address], [address], [facility] 5 16:06:10 Pulmonar y embolism 30000226 Active 2024 Kade Roman, DO [address] [place] [address], [address], [facility] 5 16:10:25 Problem Notes None recorded. Procedures Surgical History Date Name Laterality Status Provider Name and Address Organization Details Recorded Time 3 Suture/Stap le removal completed ALEXSANDER SABILLON [address] [place] [address], [phone], [facility] 02/15/2023 16:27:37 Imaging Results Imaging Date Name Status LastModified by Organiz ation Details LastModified Time 09/13/2024 electrocardio gram, routine ECG, 12 leads min completed [email or web address] [facility] [address] [place] [address], [address], 09/13/2024 11:37:47 09/23/2024 CT, chest, w/ contrast completed [email or web address] [facility] [address] [place] [address], [address], 09/25/2024 16:32:04 11/25/2024 MRI, brain, w/o contrast completed [address], [address], 11/28/2024 21:58:05 12/03/2024 US, duplex, arterial, lower extremity, complete completed Information not available 12/05/2024 19:08:14 Procedure Notes None recorded. Medical Equipment None Reported. Allergies Allergen ID Allergen Name Allergen Category Reaction Reaction Severity Criticality Documentation Date Start Date Code Code System Note Provider Name and Address Organization Details Recorded Time 2129 codeine medicatio n Not available Not available Not available 03/26/2018 2670 RxNorm Dennise Lovingsumaya mayen [facility] 8 16:10:07 2130 Product containin g 3-hydroxy -3-methyl glutaryl- coenzyme A reductase inhibitor (product) medicatio n Not available Not available Not available 03/26/2018 51061 009 SNOMED Dennise Lovingsumaya mayen [facility] 8 16:10:15 8702 Zithromax medicatio n Not available Not available Not available 09/11/2024 62471 4 RxNorm CORA LIRA, ALEXSANDER [address] [place], [address], [facility] 5 14:17:27 Medications Name Sig Start Date Stop Date Status Note LastModified by Organization Details LastModified Time Prescriptio n - Prior Authorizati on Request 04/29 completed Not Available Not Available Not Available amoxicillin 500 mg capsule TAKE 1 CAPSULE BY MOUTH THREE TIMES A DAY FOR 10 DAYS 11/14 completed Not Available Not Available Not Available acetaminoph en 325 mg tablet TAKE 3 TABLETS BY MOUTH 3 TIMES A DAY FOR 10 DAYS, DO NOT EXCEED 4000MG A DAY active Not Available Not Available No t Available doxycycline hyclate 100 mg capsule TAKE [...] 1 TABLET BY MOUTH EVERY DAY 10/25 completed Not Available Not Available Not Available Eliquis 5 mg tablet TAKE 1 TABLET BY MOUTH TWICE A DAY 2024 active Not Available Not Available Not Avai lable Fluzone High-Dose 9135-5617 (PF) 180 mcg/0.5 mL intramuscul ar syringe 07/31 completed Not Available Not Available Not Available Shingrix (PF) 50 mcg/0.5 mL intramuscul ar suspension, kit 06/15 completed Not Available Not Available Not Available Eliquis DVT-PE Treatment 30-Day Starter 5 mg (74 tablets) in dose pack TAKE 2 TABLETS BY MOUTH TWICE A DAY FOR 7 DAYS. THEN 1 TABLET TWICE DAILY FOR 23 DAYS active Not Available Not Available No t Available Fluzone High-Dose 2394-1015 (PF) 180 mcg/0.5 mL intramuscul ar syringe [...] Updated DateTime 4 181.61 cm 24.9 kg/m2 60076.2 2 g 77 /min 97 % 97 % 140 mm[Hg] 70 mm[Hg] Yue Patricia [facility] 4 14:23:03 Date Recorded Body height Heart rate Oxygen saturation Oxygen saturation in Arterial blood by Pulse oximetry Systolic blood pressure Diastolic blood pressure Provider Name and Address Organization Details Last Updated DateTime 5 181.61 cm 107 /min 97 % 97 % 116 mm[Hg] 64 mm[Hg] Jen Muhammad [facility] 5 13:57:23 Date Recorded Body height Heart rate Oxygen saturation Oxygen saturation in Arterial blood by Pulse oximetry Systolic blood pressure Diastolic blood pressure Provider Name and Address Organization Details Last Updated DateTime 5 181.61 cm 78 /min 98 % 98 % 124 mm[Hg] 78 mm[Hg] Jen Muhammad [facility] 5 10:30:17 Date Recorded Body height Body mass index (BMI) Body weight Heart rate Oxygen saturation Oxygen saturation in Arterial blood by Pulse oximetry Systolic blood pressure Diastolic blood pressure Provider Name and Address Organization Details Last Updated DateTime 5 181.61 cm 23.8 kg/m2 46542.9 2 g 78 /min 97 % 97 % 126 mm[Hg] 62 mm[Hg] Jen Muhammad [facility] 5 14:47:53 Date Recorded Body height Body mass index (BMI) Body weight Heart rate Oxygen saturation Oxygen saturation in Arterial blood by Pulse oximetry Systolic blood pressure Diastolic blood pressure Provider Name and Address Organization Details Last Updated DateTime 5 181.61 cm 23.2 kg/m2 68462.1 1 g 71 /min 96 % 96 % 120 mm[Hg] 68 mm[Hg] Yue Patricia [facility] 5 15:40:25 Social History Question Answer Notes LastModified by [employer] ion Details LastModified Time Tobacco Smoking Status Never Smoker Not Available [facility] 06/16/2020 03:36:23 What Was The Date Of [...] virus, quadrivalent, preservative 8 completed Dennise mayen [facility] 05/14/2018 08:09:52 COVID-19, mRNA, LNP-S, PF, 30 mcg/0.3 mL dose 1 completed Chasity mayen [facility] 01/12/2022 14:14:23 COVID-19, mRNA, LNP-S, PF, 30 mcg/0.3 mL dose 1 or[place] mayen [facility] 01/12/2022 14:14:30 Influenza, split virus, quadrivalent, preservative 1 [place] mayen [facility] 01/12/2022 14:14:43 zoster recombinant 1 [place] mayen [facility] 01/12/2022 14:14:59 COVID-19, mRNA, LNP-S, PF, 30 mcg/0.3 mL dose 2 completed Milagro mayen [facility] 06/15/2022 11:04:20 COVID-19, mRNA, LNP-S, PF, 30 mcg/0.3 mL dose 2 completed Chasity Ledesma [facility] 06/15/2022 11:04:28 Influenza, split virus, quadrivalent, preservative 2 [facility] 06/[facility]22 11:04:33 influenza, unspecified formulation 3 completed Kade Roman DO [address] [place] [address], [address], [facility] 04/27/2023 14:55:50 SARS-COV-2 (COVID-19) vaccine, UNSPECIFIED 3 completed Paradise Corona [facility] 05/15/2023 15:40:49 Influenza, [place] 4 completed Navi Roman [facility] 04/26/2024 10:41:34 Influenza, split virus, quadrivalent, preservative 9 completed Chasity Ledesma [facility] 07/31/2019 14:35:38 Influenza, split virus, quadrivalent, preservative 0 orlando Ledesma [facility] 04/01/2020 09:19:55 COVID-19, mRNA, LNP-S, PF, 30 mcg/0.3 mL dose 0 orlando Ledesma [facility] 01/27/2021 09:48:11 COVID-19, mRNA, LNP-S, PF, 30 mcg/0.3 mL dose 1 completed Chasity Ledesma [facility] 01/27/2021 09:48:20 Past Encounters Encounter ID Performer Location Encounter Start Date Encounter Closed Date Diagnosis/Indication Diagnosis SNOMED-CT Code Diagnosis ICD10 Code Diagnosis Note [id number] Kade Roman DO [facility] [address] [facility],[place] [address] 03/27/2018 11:20:45 03/30/2018 09:07:56 Deep venous thrombosis of lower extremity 118215926 I82.402 eliquis 6 months Insect bite - wound 2764 54587 T14.8XXA 2/5 bites appear infected will treat [id number] Kade Roman [facility] [address] [facility],[place] [address] [place] [place] [address] 06/27/2018 13:46:02 06/27/2018 14:51:46 Deep venous thrombosis of lower extremity 955755064 I82.402 d/c in another 3 months Impaired f asting glycemia 107312101 R73.01 [id number] Kade Roman [facility] [address] [facility],[place] [address] 07/31/2018 13:51:58 08/03/2018 12:27:42 Impaired fasting glycemia 768961159 R73.01 do today please Pruritic rash 22029401 L 28.2 Moisturize after shower and before bed, stay hydrated Skin lesion 36300502 L98 .9 on ankle only [id number] Kade Roman [facility] [address] [facility],[place] [address] [place] [place] [address] 08/24/2018 13:56:48 08/24/2018 15:25:42 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 valacyclov ir and has a secondary cellulitis will giv e keflex [id number] Kade Roman [facility] [address] [facility],[place] [address] 08/28/2018 11:34:09 08/28/2018 12:20:51 Disseminated herpes zoster 30251358 B02.7 valacyclov ir and has a secondary cellulitis will giv e keflex but has not improved to any signif effect so we will ask a dermatolog ist to see him arlene [id number] Kade Roman [facility] [address] [facility],[place] [address] 10/10/2018 15:27:52 10/10/2018 16:29:25 Cramp in lower limb 891201547 R25.2 magnesium and potassium Deep venou s thrombosis of lower extremity 773479279 I82.409 is back on eliquis Eczema 31584541 L30.[address] el morris working [facility] er ectile dysfunction 445990616 N52.9 has been having difficulty will try sildenafil [id number] Kade Roman [facility] [address] [facility],[place] [address] 04/29/2019 13:41:58 04/29/2019 14:26:42 Type 2 diabetes mellitus 80119109 E11.9 long detailed discussion s >20 min Eczema 52849614 L30.[address] el morris working [facility] [id number] Kade Roman [facility] [address] [facility],[place] [address] 07/31/2019 14:32:22 07/31/2019 15:06:41 Type 2 diabetes mellitus 69232263 E11.9 long detailed discussion s >20 min re diet and exercise relates that he has lost almost 20 lbs Eczema 09807086 L30.[address] el morris working [facility] [id number] Kade Roman [facility] [address] [facility],[place] [address] 09/18/2019 14:30:19 09/18/2019 14:58:45 Type 2 diabetes mellitus 70154190 E11.9 Deep venou s thrombosis of lower extremity 063045252 I82.409 d/c in another 3 months Cough 84731324 R05 [id number] Kade Roman [facility] [address] [facility],[place] [address] [place] [address] 12/31/2019 11:44:14 12/31/2019 12:14:11 Abscess of groin 44909364 L02.214 will need anbiot and a referral to gen surg for I and D [id number] Kade Roman [facility] [address] [facility],[place] [address] 01/22/2020 14:18:57 01/22/2020 15:04:40 Infection of sebaceous cyst 260459473 L72.3 we need to have this removed so we will refer Unintentio nal weight loss 995904244 R63.4 but seems to have stabilized no overt issues otherwise [id number] Kade Roman [facility] [address] [facility],[place] [address] 06/15/2020 13:51:53 06/15/2020 15:08:48 Type 2 diabetes mellitus 83864936 E11.9 long detailed discussion s >20 min re diet and exercise relates that he had lost almost 20 lbs but has gained bacepatihk a lot and gluc up to a1c 6.1 Primary er ectile dysfunction 539612244 N52.9 has been having difficulty will continue sildenafil [id number] Kade Roman [facility] [address] [facility],[place] [address] [place] [address] 10/06/2020 14:26:56 10/06/2020 15:06:28 Type 2 diabetes mellitus 96253969 E11.9 long detailed discussion s >20 min re diet and exercise relates that he had lost almost 20 lbs but has gained bacepatihk a lot and gluc up to a1c 6.1 Low back pain 183113800 M54.5 prob latissimus strain from excessive mopping at work told to take ibuprof and tylenol and to use this tid for 1 week and see if this is ok Eczema 23425266 L30.[address] gallegos [facility] working good [id number] Kade Roman [facility] [address] [facility],[place] [address] [place] [address] 02/01/2021 14:53:44 02/01/2021 15:55:36 Type 2 diabetes mellitus 96915329 E11.9 long detailed discussion s >20 min re diet and exercise relates that he had lost almost 20 lbs but has gained back his wgt and gluc up to a1c 7.0we will discuss on better diet and better way of treatment if he stays high Primary er ectile dysfunction 469809480 N52.9 has been having difficulty will continue sildenafil Deep venou s thrombosis of lower extremity 818444851 I82.409 is back on eliquis Hypercholesterolemia 136 74137 E78.00 told him that he needs to be more careful he is not interested in starting a med we will rechk in may Kade PettyKannan Roman [facility] [address] [facility],[place] [address] 06/11/2021 14:31:36 06/11/2021 14:59:46 Type 2 diabetes mellitus 39277203 E11.9 long detailed discussion s >20 min re diet and exercise we will discuss on better diet and better way of treatment if he stays high Hypercholesterolemia 136 35490 E78.00 told him that he needs to be more careful he is notable to take statins due to liver irritation [id number] Kade Ledesmakrista [facility] [address] [facility],[place] [address] 10/11/2021 13:44:54 10/12/2021 15:08:55 Type 2 diabetes mellitus 31440749 E11.9 long detailed discussion s >20 min re diet and exercisea1 c is 7.7we will discuss on better diet and better way of treatment if he stays high Hypercholesterolemia 136 59482 E78.00 told him that he needs to be more careful he is notable to take statins due to liver irritation discussed at length Deep venou s thrombosis of lower extremity [id number] I82.409 is back on [facility] [id number] Kade Ledesmakrista [facility] [address] [facility],[place] [address] 01/12/2022 13:42:25 01/12/2022 15:08:58 Hypercholesterolemia 94336042 E78.00 told him that he needs to be more careful he is notable to take statins due to liver irritation discussed at length Type 2 frederic betes mellitus 97499143 E11.9 long detailed discussion s >20 min re diet and exercisea1 c is 7.5 still ok was 7.7 needs to get back to 6'swe will discuss on better diet and better way of treatment if he stays high Depression screening 171 521507 Z13.31 score of 1 Active or passive immunization 772729913 Z23 patient advised of due vaccines (tdap, pneu 13 & 23, shingles) Eczema 48204988 L30.[address] galleg[facility] working good Low back pain 315891483 M54.50 symptoms seem to be better than in the winter Primary er ectile dysfunction 790888966 N52.9 has been having difficulty will continue sildenafil [id number] Kade Roman [facility] [address] [facility] [address],[place] [address] 04/26/2022 14:02:04 04/26/2022 15:55:16 Type 2 diabetes mellitus 06654027 E11.9 long detailed discussion s >20 min re diet and exercisea1 c is still 7.5 and before this was 7.5 still ok was 7.7 needs to get back to 6'swe will discuss on better diet and better way of treatment if he stays high Eczema 35800586 L30.[address] el morris working good doing great now Diffuse pain 7648932 R52 having bilateral knee and hip and flank pain all of these areas are directly on bony prominence s [id number] Kade Roman DO [facility] Internal [facility] [address] [facility] on [place] [place] [address] 05/13/2022 15:01:41 05/13/2022 16:31:02 Infection of tooth 233942393 K04.7 he will be on cefdinir Chronic sinusitis 553974 00 J32.9 he understand s to call if he gets any diarrhea etc Osteoarthritis 783682818 M19.90 noted multiple areas we will try to treat as we need will use prn nsaid and see how he does [id number] Kade Roman [facility] [address] [facility] [address] [place] [address] 10/10/2022 14:50:55 10/10/2022 15:41:10 Type 2 diabetes mellitus 06932657 E11.9 re need for good scheduled eating [...] Deep venou s thrombosis of lower extremity 782135559 I82.409 [facility] Advance care planning 71 2322642 Z71.89 utd Gingivitis 02773731 K05. 10 Anxiety 37917387 F41.9 will use as back up [id number] Kade Roman [facility] [address] [facility],[place] [address] 11/14/2022 15:06:27 11/14/2022 15:56:45 Anxiety 25104810 F41.9 will use as back up Type 2 frederic betes mellitus 70149303 E11.9 he needs to do the a1c [...] of treatment if he stays high Fatigue 62949193 R53.83 having muscle pain as well having a hard time 42156 Kade Roman [facility] [address] [facility],[place] [address] 02/15/2023 15:32:45 02/17/2023 09:03:21 Removal of suture 75041959 Z48.02 removed Laceration of finger of right hand 8038050332 6506822 S61.210D removed 31782 Kade Roman [facility] [address] [facility], [place] [address] 03/31/2023 14:46:05 03/31/2023 16:04:48 Type 2 diabetes mellitus 00705761 E11.9 a1c is down to 6.7!!!!! from 7.8 PRIOR : re need for good scheduled eating and not skipping meals long discussion discussed cont to eat good diet h [id number] is still 7.5 and before this was 7.5 still ok was 7.7 needs to get back to 6'swe will discuss on better diet and better way of treatment if he stays high Osteoarthritis 750091031 M19.90 noted multiple areas we will try to treat as we need we will cont to use the meloxicam as needed [id number] Kade Roman DO [facility] [address] [facility],[place] [facility] [place] [address] 07/10/2023 14:08:44 07/10/2023 14:51:17 Hypercholesterolemia 31296356 E78.00 told him that he needs to be more careful he is notable to take statins due to liver irritation discussed at length Type 2 frederic betes mellitus 39090698 E11.9 a1c is now up to 7.1 due to diet indiscreti on PRIOR :long discussion re need for better diet.re need for good scheduled eating and not skipping meals long discussion discussed cont to eat good diet h Erectile dysfunction 860 256683 F52.21 he will try this as the sildenafil was not too helpful [id number] Kade Roman [facility] [address] [facility],[place] [address] 09/13/2023 08:27:18 09/13/2023 16:37:42 Type 2 diabetes mellitus without complication 018325600 E11.9 not controlled and has gained weight 5lbs and a1c has gone upsee below he will manage with diet control Deep venou s thrombosis of lower extremity 877099860 I82.409 resolved Type 2 frederic betes mellitus 22458678 E11.9 a1c is now up to 7.7 was 7.1 due to diet indiscreti on PRIOR :long discussion re need for better diet.re need for good scheduled eating and not skipping meals long discussion discussed cont to eat good diet h Fatigue 48348294 R53.83 relates this happens with elevated glucose Eczema 15783196 L30.[address] gallegos [facility] working good doing great now [id number] Kade Roman [facility] [address] [facility],[place] [address] 01/15/2024 14:50:17 01/15/2024 15:59:33 Depression screening 730484742 Z13.31 Type 2 frederic betes mellitus 27934134 E11.9 a1c is now up to 7.7 was 7.1 due to diet indiscreti on PRIOR :long discussion re need for better diet.re need for good scheduled eating and not skipping meals long discussion discussed cont to eat good diet 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 referral to kiki Intermitte nt claudication 67662355 I73.9 needs a vascular study [id number] DO [facility] [address] [facility], [place] [address] 04/26/2024 14:11:54 04/26/2024 14:51:17 Adult health examination 089057959 Z00.01 here and is doing ok overall Screening for cardiovascular system disease 120194575 Z13.6 Screening for malignant neoplasm of colon 230661335 Z12.11 Hypercholesterolemia 136 50488 E78.00 told him that he needs to be more careful he is notable to take statins due to liver irritation discussed at length Intermitte nt claudication 15810500 I73.9 needs a vascular study Type 2 frederic betes mellitus 02641260 E11.9 a1c is now up to 7.7 was 7.1 due to diet indiscreti on PRIOR :long discussion re need for better diet.re need for good scheduled eating and not skipping meals long discussion discussed cont to eat good diet h Inflammato ry polyarthropathy 537289933 M06.4 Erectile dysfunction 860 338629 F52.21 he will try this as the sildenafil was not too helpful [id number] DO Francis [facility] [address] [facility], [place] [address] 09/11/2024 13:48:00 09/11/2024 14:28:24 Neuropathy 535500237 G62.89 nerve pain throughout , radiates from the low back Atypical chest pain 1025 59214 R07.89 agreed to work uprecommen ded CT and EKG assessment to r/o cardiac etiology Type 2 frederic betes mellitus 69992012 E11.9 needs lab work Tachycardia 1034461 R00. 0 racing heart, no arrhythmia detected [id number] DO Frnacis [facility] [address] [facility], [place] [address] 09/17/2024 10:20:02 09/17/2024 12:21:32 Type 2 diabetes mellitus 49927851 E11.65 will set up with standing orderscont on metforminr [facility] in a few weeks to see how his glucose levels Muscle pain 33425607 M79 .18 worsened by excess sugar Excessive thirst 8355079 7 R63.1 related to the sugar [id number] Kade Roman DO [facility] [address] [facility],[place] [address] 10/25/2024 14:29:01 10/25/2024 15:24:59 Depression screening 764640823 Z13.31 equiv Weakness o f bilateral lower limb 0734633028 15118 M62.81 here and worried about the pain legs getting worse and episodes of weakness are becoming more frequent Headache 97183229 R51.9 Cyst of abdomen 37968598 0 R19.00 [id number] DO Francis [facility] [address] [facility],[place] [address] 12/11/2024 15:29:14 12/11/2024 16:23:50 Deep venous thrombosis of lower extremity 425580975 I82.409 resolved Hypercholesterolemia 136 81807 E78.00 told him that he needs to be more careful he is notable to take statins due to liver irritation discussed at length Type 2 frederic betes mellitus 44907950 E11.65 a1c is now up to 7.7 was 7.1 due to diet indiscreti on PRIOR :long discussion re need for better diet.re need for good scheduled eating and not skipping meals long discussion discussed cont to eat good diet h Depression screening 171 084382 Z13.31 equiv Hyperglycemia 96634152 R 73.9 need to differenti ate type 1 form 2 given recent wgt loss in setting of a1c of 8.9 Pulmonary embolism 28590 003 I26.99 long detailed discussion will be getting a pft and echo and leg US next visit Health Concerns Section Related Observation LastModified by Organization Detai ls LastModified Time None Recorded Concern Status LastModified by Organization Details LastModified Time None Recorded Advance Directives Directive None Recorded Payers Encounter Date Sequence Insurance Name Policy Number Policy Falcon Covered Member ID Falcon Member ID Guarantor Name 04/26/2024 1 [place] [employer] Minh Jameson [id number] Minh Jameson 04/26/2024 2 [facility] Minh Jameson [id number] Minh aJmeson 09/11/2024 1 [place]: [facility] Minh Jameson [id number] Minh Jameson 09/11/2024 2 [facility] Minh Jameson [id number] Minh Jameson 09/17/2024 1 [place] [facility] Minh Jameson [id number] Minh Jameson 09/17/2024 2 [facility] Minh Jameson [id number] Minh Jameson 10/25/2024 1 [place] [facility] Minh Jameson [id number] Minh Jameson 10/25/2024 2 [facility] Minh Jameson [id number] Minh Jameson 12/11/2024 1 [place] [facility] Minh Jameson [id number] 07 Minh Jameson 12/11/2024 2 [facility] Minh Jameson [id number] Minh Jameson Notes Date Note Type Note Provider Name and Address Organization Details Recorded Time 04/26/20 24 text/htm l Medicare Annual Wellness VisitReported bypatient.Diet and Nutrition:healthy [...] of his hands Kade Roman DO [address] [place], [address], [facility] 04/26/2024 14:48:58 09/11/19 25 text/htm l c/o sob and cough the patient is [...] possible from the diabetes ALEXSANDER SABILLON [address] [place], [address], [facility] 09/11/2024 14:25:52 09/17/19 25 text/htm l f/u appt the patient reports that he [...] muscle pain, brain fog ALEXSANDER SABILLON [address] [place], [address], [facility] 09/17/2024 11:00:37 10/26/19 25 text/htm l f/u appt has continued to lose wgt [...] easier fatigue, muscle pain, brain fog Kade Roman DO [address] [facility], [place], [address], [facility] 10/25/2024 15:21:19 12/12/19 25 text/htm l Care Management - DiabetesReported bypatient.Self Care:seeing eye doctor yearly for dilated eye exam; checking feet regularly; normal range of home blood sugars (in the low 100s); no side effects from medications Associated Symptoms:symptoms are usually well controlled; no fatigue; no dizziness; no excessive sweating; no headaches; no confusion; no increased thirst; no increased appetite; no increased urination; no blurred vision; no numbness of feet; no calluses on feetCare Management - HyperlipidemiaReported bypatient.Control:usually well controlled; improving; at goal Complications:no coronary artery disease; no heart attack; no cardiovascular disease; no pancreatitis; no stroke here for rechk and is doing better since his admission for bilat pulm embolino leg swelling prior but had large dvt in right leg !! Kade Roman, DO [address] [facility], [place], [address], [facility] 12/11/2024 16:16:39
--- OUTSIDE RECORDS SUMMARY | 2024-12-12 10:09 | XMS_ITS | Continuity of Care Document ---
Author Organization [place] - [facility], [facility] Address [address] [place] [address] [place] [address] Assessment Encounter Date Assessment Date Assessment LastModified by Organization Details LastModified Time 12/11/2024 12/11/2024 The patient presented to their appointment today for multiple concerns requiring moderate to high-level decision making and took over 40-45 minutes for an adequate and appropriate history, exam, assessment and treatment plan. This appointment was done with an established patient. 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) [facility] HIGH MUST MEET 2 OUT OF [...] Details Appointments FOLLOW UP 15 2024 02:45P M DR ROMAN Not available Not available Not available Lab CMP, serum or plasma 2024 025 [facility], [address] [place] [address], [place], [address], 12/11/2024 16:20:22 hemoglobi n A1c, QN, blood 2024 025 [facility], [address] [place] [address], [place], [address], 12/11/2024 16:20:22 C-peptide , serum 2024 025 [facility], [address] [place] [address], [place], [address], 12/11/2024 16:20:22 insulin, serum 2024 025 [facility], [address] [place] [address], [address], 12/11/2024 16:20:22 Referral None recorded. Procedures None recorded. Surgeries None recorded. Imaging None recorded. Medication Orders Eliquis [address] [id number], [address] [place], [address], 12/11/2024 16:14:03 Patient TargetsNo targets recorded. Patient Instructions Encounter Date Encounter Id Patient Instructions Last Modified By Organization Details Last Modified Time 12/11/2024 [id number] learning about high blood sugar Not available 12/11/2024 16:14:01 Reason for Referral None Reported. Results Created Date Observation Date Name Description Value Unit Range Abnormal Flag Note LastModifiedBy Organization Detail LastModifiedTime 11/29/19 25 11/25/2024 MRI, brain , w/o contr ast No observ ation record ed. [facility] [address] [place], [address], 11/28/2024 21:58:05 12/06/19 25 12/03/2024 US, nasir x, arter ial, lower extre mity, compl ete No observ ation record ed. Not Available 2024 19:08:14 Result Notes None recorded. Problems Name Problem SNOMED Code Status Onset Date Resolution Date Notes Provider Name and Address Organization Details Recorded Time Impaired fasting glycemia 404966395 Completed 201704/29/2019 Kade Roman, DO [address] [place], [address], [facility] 9 14:13:08 Type 2 diabetes mellitus 06378115 Active 12/22 Jen Muhammad null, [facility] 5 09:05:14 Eczema 91685730 Active 2018 Jen Muhammad null, [facility] 5 09:05:14 Low back pain 379606746 Active 2020 Not Available [facility] 3 15:02:30 Hypercho lesterol emia 77362507 Active 2020 Not Available [facility] 3 15:02:30 Deep venous thrombos is of lower extremit y 745183060 Completed 202101/12/2022 Removal Reason: resolved Kade Roman, DO [address] [place], [address], [facility] 2 14:03:44 Primary erectile dysfunct ion 198349686 Active 2021 Jen Muhammad null, [facility] 5 09:05:14 Diffuse pain 2476873 Active 2021 Jen Muhammad null, [facility] 5 09:05:14 Infectio n of tooth 646037797 Active 2021 Jen Muhammad null, [facility] 5 09:05:22 Chronic sinusiti s 51958442 Active 2021 Jen Muhammad null, [facility] 5 09:05:14 Osteoart hritis 268997143 Active 2021 Jen mayen, [facility] 5 09:05:14 Gingivit is 87093349 Active 2022 Jen Muhammad null, [facility] 5 09:05:22 Deep venous thrombos is of lower extremit y 852794481 Active 2022 Jen mayen, [facility] 5 09:05:14 Anxiety 65840005 Active 2022 Jen Muhammad null, [facility] 5 09:05:14 Fatigue 34562925 Active 2022 Jenricki Muhammad null, [facility] 5 09:05:22 Lacerati on of finger of right hand 7426789585 6261064 Active 2022 Jen Muhammad null, [facility] 5 09:05:22 Erectile dysfunct ion 264947469 Active 2022 Jen Muhammad null, [facility] 5 09:05:14 Type 2 diabetes mellitus without complica tion 185594909 Active 2023 Jen Muhammad null, [facility] 5 09:05:14 Epps's neuroma of right foot 8186014486 15529 Active 2023 Jen Muhammad null, [facility] 5 09:05:14 Intermit tent claudica tion 84540848 Active 2023 Jen Muhammad null, [facility] 5 09:05:14 Inflamma tory polyarth ropathy 573017103 Active 2023 Jen Muhammad null, [facility] 5 09:05:14 Cough 36911043 Active 2024 Jen Muhammad null, [facility] 5 09:05:22 Neuropat hy 898135288 Active 2024 Jen Muhammad null, [facility] 5 09:05:14 Atypical chest pain 250728777 Active 2024 Jen Muhammad null, [facility] 5 09:05:14 Tachycar frederic 9592416 Active 2024 Jen Muhammad null, [facility] 5 09:05:14 Muscle pain 91384432 [facility] 09:05:14 Excessiv e thirst 13708537 Active 2024 [facility] 5 09:05:22 Weakness of bilatera l lower limb Active 2024 Kade Roman, [address], [address], [facility] 5 15:05:19 Headache 77985081 Active 2024 Kade Roman, [address], [address], [facility] 5 15:05:48 Cyst of abdomen 629002658 Active 2024 Kade Roman, [address], [address], [facility] 5 15:19:27 Hypergly cemia 83803931 Active 2024 Kade Roman, DO [address] [place] [address], [address], [facility] 5 16:06:10 Pulmonar y embolism 97224460 Active 2024 Kade Roman, [address], [address], [facility] 5 16:10:25 Problem Notes None recorded. Procedures Surgical History Date Name Laterality Status Provider Name and Address Organization Details Recorded Time 3 Suture/Stap le removal completed ALEXSANDER SABILLON [address] [place] [address], [address], [facility] 02/15/2023 16:27:37 Imaging Results None recorded. Procedure Notes None recorded. Medical Equipment None Reported. Allergies Allergen ID Allergen Name Allergen Category Reaction Reaction Severity Criticality Documentation Date Start Date Code Code System Note Provider Name and Address Organization Details Recorded Time 2129 codeine medicatio n Not available Not available Not available 03/26/2018 2670 RxNorm Dennise mayen, [facility] 8 16:10:07 2131 Product containin g 3-hydroxy -3-methyl glutaryl- coenzyme A reductase inhibitor (product) medicatio n Not available Not available Not available 03/26/2018 58881 009 SNOMED Dennise mayen [facility] 8 16:10:15 8702 Zithromax medicatio n Not available Not available Not available 09/11/2024 92185 4 RxNorm ALEXSANDER SABILLON [address] [place], [address], [facility] 5 14:17:27 Medications Name Sig [...] Not Available Not Avai lable Fluzone High-Dose (PF) 180 mcg/0.5 mL intramuscul ar syringe [...] Not Available No t Available Fluzone High-Dose (PF) 180 mcg/0.5 mL intramuscul ar syringe 07/31 completed Not Available Not Available Not Available Fluzone High-Dose (PF) 180 mcg/0.5 mL intramuscul ar syringe [...] Updated DateTime 5 181.61 cm 23.2 kg/m2 18380.1 1 g 71 /min 96 % 96 % 120 mm[Hg] 68 mm[Hg] Yue Patricia [facility] 5 15:40:25 Social History Question Answer Notes LastModified by Organizat ion Details LastModified Time Tobacco Smoking Status Never Smoker Not Available [facility] 06/16/2020 03:36:23 What Was The Date Of [...] virus, quadrivalent, preservative 8 completed Dennise mayen [facility] 05/14/2018 08:09:52 COVID-19, mRNA, LNP-S, PF, 30 mcg/0.3 mL dose 1 completed Chasity mayen [facility] 01/12/2022 14:14:23 COVID-19, mRNA, LNP-S, PF, 30 mcg/0.3 mL dose 1 completed Chasity mayen [facility] 01/12/2022 14:14:30 Influenza, split virus, quadrivalent, preservative 1 [place] mayen [facility] 01/12/2022 14:14:43 zoster recombinant 1 completed Chasity [facility] 01/12/2022 14:14:59 COVID-19, mRNA, LNP-S, PF, 30 mcg/0.3 mL dose 2 completed [facility] 06/15/2022 11:04:20 COVID-19, mRNA, LNP-S, PF, 30 mcg/0.3 mL dose 2 completed Chasity [facility] 06/15/2022 11:04:28 Influenza, split virus, quadrivalent, preservative 2 completed [facility] 06/15/2022 11:04:33 influenza, unspecified formulation 3 completed Kade Roman, [address], [address], [facility] 04/27/2023 14:55:50 SARS-COV-2 (COVID-19) vaccine, UNSPECIFIED 3 completed [facility] 05/15/2023 15:40:49 Influenza, [place] 4 completed [facility] 04/26/2024 10:41:34 Influenza, split virus, quadrivalent, preservative 9 completed Chasity [facility] 07/31/2019 14:35:38 Influenza, split virus, quadrivalent, preservative 0 or[place] [facility] 04/01/2020 09:19:55 COVID-19, mRNA, LNP-S, PF, 30 mcg/0.3 mL dose 0 [facility] 01/27/2021 09:48:11 COVID-19, mRNA, LNP-S, PF, 30 mcg/0.3 mL dose 1 [facility] [facility] 01/27/2021 09:48:20 Past Encounters Encounter ID Performer Location Encounter Start Date Encounter Closed Date Diagnosis/Indication Diagnosis SNOMED-CT Code Diagnosis ICD10 Code Diagnosis Note [id number] DO [facility] [address],[place] [address] 12/11/2024 15:29:14 12/11/2024 16:23:50 Deep venous thrombosis of lower extremity 199992985 I82.409 resolved Hypercholesterolemia 136 08854 E78.00 told him that he needs to be more careful he is notable to take statins due to liver irritation discussed at length Type 2 frederic betes mellitus 10945515 E11.65 a1c is now up to 7.7 was 7.1 due to diet indiscreti on PRIOR :long discussion re need for better diet.re need for good scheduled eating and not skipping meals long discussion discussed cont to eat good diet h Depression screening 171 960213 Z13.31 equiv Hyperglycemia 33156806 R 73.9 need to differenti ate type 1 form 2 given recent wgt loss in setting of a1c of 8.9 Pulmonary embolism 00393 003 I26.99 long detailed discussion will be getting a pft and echo and leg US next visit Health Concerns Section Related Observation LastModified by Organization Detai ls LastModified Time None Recorded Concern Status LastModified by Organization Details LastModified Time None Recorded Payers Encounter Date Sequence Insurance Name Policy Number Policy Falcon Covered Member ID Falcon Member ID Guarantor Name 12/11/2024 1 MEDICARE [place]: [employer] Minh Jameson [id number] Minh Jameson 12/11/2024 2 [facility] Minh Jameson [id number] Minh Jameson Notes Date Note Type Note Provider Name and Address Organization Details Recorded Time 12/12/19 25 text/htm l Care Management - [...] right leg !! Kade Roman, DO [address] [facility], [place], [address], [facility] 12/11/2024 16:16:39
[2024-12-12 11:49] LABS: Alanine Aminotransferase 25 U/L (0-40); Albumin Level 4.2 g/dL (3.5-5.0); Anion Gap 14 (12-20); Aspartate Amino Transferase 27 U/L (5-37); Bilirubin Total 0.9 mg/dL (0.0-1.0); Blood Urea Nitrogen 26 mg/dL (9-16); Calcium 9.8 mg/dL (8.4-10.2); Carbon Dioxide 25 mmol/L (22-29); Chloride 106 mmol/L (96-108); Estimated Glomerular Filt Rate > 60; Glucose Random 191 mg/dL (60-115); Potassium 4.1 mmol/L (3.3-5.1); Sodium 141 mmol/L (135-145); Total Protein 7.1 g/dL (6.5-8.0)
[2024-12-12 11:53] LABS: Estimated Average Glucose 203 mg/dL; Hemoglobin A1c % 8.7 % (<6.0); Total Hemoglobin (HGBA1C) 3737.7129 umol/L
[2024-12-12 12:16] LABS: Insulin 6 uU/mL (2-29)
[2024-12-12 12:22] LABS: Alkaline Phosphatase 94 U/L (39-117)
[2024-12-13 06:49] LABS: C Peptide 2.13 ng/mL (0.80-3.85)
== END 2024-12-12 09:20 | disposition home or self-care (01) ==
LOC: HO.WFDLDS 09:19
PROVIDERS: Visit Provider Internal Medicine
DX: R73.9 Hyperglycemia, unspecified (principal)
CPT/HCPCS: 36415; 80053; 83036; 83525; 84681

== ENCOUNTER 2025-03-17 10:19 | Outpatient (REF) | payer MEDICARE, SELFPAY ==
--- OUTSIDE RECORDS SUMMARY | 2025-03-17 10:58 | XMS_ITS | Encounter Summary ---
Author Organization [facility] Address [address] [place] [address] Phone Care Team Providers Care Pharmacogeneticist Name Role Phone Pcp, Not Required Primary Care Provider Unavaila ble Bigda, Kade A DO Unavailable Bigda, Kade A DO Primary Care Provider [phone] Bigda, Kade A DO Unavailable Bigda, Kade A DO Primary Care Provider [phone] Encounter Details Date Type Department Care Team (Late st Contact Info) Description 08/30/2018 Transcribe Orders [facility] Specimen Processing [address] [place] [address] Gail Varela MD [address] [place] [address] Non-bullous impetigo (Primary Dx) Social History Tobacco Use Types Packs/Day Years Used Date Smoking Tobacco: Never Assessed Sex and Gender Information Value Date Recorded Sex Assigned at Not on file Legal Sex Male 10:37 PM EDT Gender Identity Not on file Sexual Orientation Not on file documented as of this encounter Plan of Treatment Not on file documented as of this encounter Results * Wound culture/smear (08/28/2018 5:27 PM EST) Specimen Source/ Description HAND LEFT ULNAR DORSAL HAND HAND [facility] Special Requests None [facility] GRAM STAIN NO ORGANISMS SEEN [facility] Culture/Test NO GROWTH 48HRS [facility] Report Status 09/01/2018 FINAL [facility] Other (Hand) 08/28/2018 5:27 PM EST 08/30/2018 4:24 PM EST us Gail Varela MD MICROBIOLOGY - GENERAL LON VILLAVICENCIO Final Result [facility] [address] [place] [address] documented in this encounter Visit Diagnoses Diagnosis Non-bullous impetigo- Primary documented in this encounter Care Teams Pharmacogeneticist Relationship Specialty Start Date End Date Pcp, Not Required [address] [place] [address] PCP - General 08/28/18 01/22/20 Kade Kelly DO [address] [place] [address] PCP - General Internal Medicine 01/23/20 10/30/24 Kade Kelly DO [address] [place] [address] PCP - General Internal Medicine 10/31/24 Kade Kelly DO [address] [place] [address] Insurance Assigned Provider 12/18/19 08/22/20 Kade Kelly DO [address] [place] [address] Insurance Assigned Provider 10/17/20 06/24/23 documented as of this encounter Additional Source Comments The information contained in this document represents components of the legal health record. It is not the complete legal health record.[facility]
[2025-03-17 12:04] LABS: Hemoglobin A1C 121.9228 umol/L; Total Hemoglobin (HGBA1C) 2852.7404 umol/L
== END 2025-03-17 10:20 | disposition home or self-care (01) ==
LOC: HO.WFDLDS 10:19
PROVIDERS: Visit Provider Internal Medicine
DX: E11.65 Type 2 diabetes mellitus with hyperglycemia (principal)
CPT/HCPCS: 36415; 83036

== ENCOUNTER 2025-04-02 13:50 | Outpatient (REF) | payer MEDICARE, SELFPAY ==
--- OUTSIDE RECORDS SUMMARY | 2025-04-02 14:46 | XMS_ITS | Encounter Summary ---
Author Organization [facility] Address [address] [place] [address] Phone Care Team Providers Care Commercial Lines Underwriter Name Role Phone Pcp, Not Required Primary Care Provider Unavaila ble Bigda, Kade A DO Unavailable Bigda, Kade A DO Primary Care Provider [phone] Bigda, Kade A DO Unavailable Bigda, Kade A DO Primary Care Provider [phone] Encounter Details Date Type Department Care Team (Late st Contact Info) Description 08/30/2018 Transcribe Orders [facility] Specimen Processing [address] [place] [address] Gail Varela MD [address] [place] [address] Non-bullous impetigo (Primary Dx) Social History Tobacco [...] Description HAND LEFT ULNAR DORSAL HAND HAND [facility] Special Requests None [facility] GRAM STAIN NO ORGANISMS SEEN [facility] Culture/Test NO GROWTH 48HRS [facility] Report Status 09/01/2018 FINAL [facility] Other (Hand) 08/28/2018 5:27 PM EST 08/30/2018 4:24 PM EST us Gail Varela MD MICROBIOLOGY - GENERAL LON VILLAVICENCIO Final Result [facility] [address] [place] [address] documented in this encounter Visit Diagnoses Diagnosis Non-bullous impetigo- Primary documented in this encounter Care Teams Commercial Lines Underwriter Relationship Specialty Start Date End Date Pcp, Not Required [address] [place] [address] PCP - General 08/28/18 01/22/20 Kade Kelly DO [address] [place] [address] [email or web address] PCP - General Internal Medicine 01/23/20 10/30/24 Kade Kelly DO [address] [place] [address] [email or web address] PCP - General Internal Medicine 10/31/24 Kade Kelly DO [address] [place] [address] [email or web address] Insurance Assigned Provider 12/18/19 08/22/20 Kade Kelly DO [address] [place] [address] Insurance Assigned Provider 10/17/20 06/24/23 documented as of this encounter Additional Source Comments The information contained in this document represents components of the legal health record. It is not the complete legal health record.[facility]
[2025-04-02 17:24] LABS: MANUAL DIFF FLAG NO
[2025-04-02 17:39] LABS: Hematocrit 39.6 % (42.0-52.0); Hemoglobin 13.5 g/dl (14.0-18.0); Imm Gran Abs Auto 0.02 X10*3/uL (0.00-0.03); Imm Gran Pct Auto 0.3 % (0.0-0.4); Lymphocytes Absolute Auto 1.9 X10*3/uL (1.2-4.9); Mean Corpuscular HGB Conc 34.1 g/dl (31.0-36.0); Mean Corpuscular Hemoglobin 33.0 pg (27.0-33.0); Mean Corpuscular Volume 96.8 fL (80.0-98.0); NRBC Abs Auto 0.000 X10*3/uL (0.0-0.012); NRBC Pct Auto 0.0 /100WBC (0.0-0.2); Platelet Count 159 X10*3/uL (160-400); Red Blood Count 4.09 X10*6/uL (4.60-5.80); White Blood Count 6.5 X10*3/uL (4.8-10.8)
[2025-04-02 18:05] LABS: Alanine Aminotransferase 21 U/L (0-40); Albumin Level 4.3 g/dL (3.5-5.0); Alkaline Phosphatase 70 U/L (39-117); Anion Gap 13 (12-20); Aspartate Amino Transferase 24 U/L (5-37); Blood Urea Nitrogen 27 mg/dL (9-16); Calcium 9.4 mg/dL (8.4-10.2); Carbon Dioxide 27 mmol/L (22-29); Chloride 102 mmol/L (96-108); Estimated Glomerular Filt Rate > 60; Potassium 4.3 mmol/L (3.3-5.1); Sodium 138 mmol/L (135-145); Total Protein 6.9 g/dL (6.5-8.0)
[2025-04-02 18:23] LABS: Vitamin B12 957 pg/mL (200-900)
[2025-04-03 05:58] LABS: Lyme Abs Screen <0.90 index
[2025-04-16 21:19] LABS: A. Phagocytophilum Ab IgG <1:64 (<1:64); A. Phagocytophilum Ab IgM <1:20 (<1:20)
== END 2025-04-02 13:51 | disposition home or self-care (01) ==
LOC: HO.WFDLDS 13:50
PROVIDERS: Visit Provider Internal Medicine
DX: G62.89 Other specified polyneuropathies (principal)
CPT/HCPCS: 36415; 80053; 82306; 82607; 85025; 85652; 86140; 86617; 86618; 86666

== ENCOUNTER 2025-06-25 14:16 | Outpatient (REF) | payer MEDICARE, SELFPAY ==
--- OUTSIDE RECORDS SUMMARY | 2025-06-25 17:52 | XMS_ITS | Clinical Summary ---
Author Organization [facility] Address [address] [place] [address] Phone Care Team Providers Care Chief Deputy Sheriff Name Role Phone Kade Kelly DO Primary Care Provider [phone] Allergies Active Allergy Reactions Criticality Noted Date Comments Codeine 01/27/2020 Ioxbrpz-Qrp-Yrh Reductase Inhibitors 01/27/2020 Medications triamcinolone acetonide 0.1 % cream triamcinolone acetonide 0.1 % topical cream Active Active Problems Problem Noted Date Diagnosed Date Eczema 04/29/2019 Type 2 diabetes mellitus 03/26/2018 Immunizations Immunization Administration Dates Next Due COVID-19 (Pre-06/05) Pfizer Vaccine, mRNA, PF 08/26/2020,08/04/2020 INFLUENZA, SPLIT VIRUS, TRIVALENT PF 05/11/2015 INFLUENZA, SPLIT VIRUS, TRIV ALENT W/ PRESERVATIVE IM 06/11/2011 Influenza High-Dose Trivalen t Preservative Free IM 05/09/2019,05/10/2018,05/16/2017,2015 Social History Tobacco Use Types Packs/Day Years Used Date Smoking Tobacco: Never Smokeless Tobacco: Never Education Answer Date Recorded Are you interested in more education? Not on rebecca e 12/09/2022 Are you concerned about learning? Not on file 12/09/2022 No 12/09/2022 No 12/09/2022 Digital Access Answer Date Recorded No 01/07/2023 No 01/07/2023 Reliable internet access at home? Not on file 01/07/2023 Device with a working camera? Not on file Sex and Gender Information Value Date Recorded Sex Assigned at Not on file Legal Sex Male 10:37 PM EDT Gender Identity Not on file Sexual Orientation Not on file Last Filed Vital Signs Vital Sign Reading Time Taken Comments Blood Pressure 124/66 11/18/2024 1:39 PM EDT Pulse 80 11/18/2024 1:39 PM EDT Temperature 36.4 C (97.5 F) 11/18/2024 1:39 PM EDT Respiratory Rate - - Oxygen Saturation 96% 11/18/2024 1:39 PM EDT Inhaled Oxygen Concentration - - Weight 76.7 kg (169 lb) 11/18/2024 1:39 PM EDT Height - - Body Mass Index - - Plan of Treatment Health Maintenance Due Date Last Done Comments Adult Td,Tdap Booster 1947 DEPRESSION SCREENING 1959 HEPATITIS C SCREENING 1965 LIPID PANEL 1965 PNEUMOCOCCAL VACCINES (50+ years) (1 of 2 - PCV) 1966 ZOSTER VACCINES (1 of 2) 1997 HEMOGLOBIN A1C 01/23/2020 07/24/2019 RSV VACCINE (1 - 1-dose 75+ series) 2022 DIABETIC EYE EXAM 11/18/2024 URINE MICROALBUMIN/CREATININE RATIO 11/18/2024 INFLUENZA VACCINE (#1) 2025 9, 05/10/2018, 05/16/2017, Additional history exists COVID-19 VACCINE ( - season) 2025 08/26/2020, 08/04/2020 BLOOD PRESSURE 05/20/2025 11/18/2024 SMOKING STATUS SCREENING (Once After 26 Yrs) Completed 12/02/2024 HEPATITIS A VACCINES Aged Out No long er eligible based on patient's age to complete this topic HIB VACCINES Aged Out No longer eligi ble based on patient's age to complete this topic IPV VACCINES Aged Out No longer eligi ble based on patient's age to complete this topic MENINGOCOCCAL VACCINES (ACWY) Aged Out No longer eligible based on patient's age to complete this topic MENINGOCOCCAL VACCINES (B) Aged Out N o longer eligible based on patient's age to complete this topic Medical Devices Not on file Insurance MEDICARE PART A & B [facility] MEDICARE ENHANCE SUPPLEMENT MEDICARE PART A & B Member Subscriber Plan / Payer (Ef fective 2020-) Name:Minh Jameson Member ID:[id number] Relation to Subscriber:Self Name:Minh Jameson Subscriber ID:[id number] Payer ID:[id number] Group ID:Not on file Type:Medicare Address: Support[address] [place] [address] [facility] MEDICARE ENHANCE SUPPLEMENT [facility] Address: [address] [place] [address] MEDICARE PART A & B Member Subscriber Plan / Payer (Ef fective 2020-Present) Name:JamesonTommyMinh T Member ID:[id number] Relation to Subscriber:Self Name:Minh Jameson Subscriber ID:[id number] Payer ID:[id number] Group ID:Not on file Type:Medicare Address: SupportLocal [address] [place] [id number] [place] [address] MEDICARE ENHANCE SUPPLEMENT [facility] Address: [facility] [address] [place] [address] MEDICARE PART A & B Member Subscriber Plan / Payer (Ef fective 2020-) Name:Minh Jameson Member ID:[id number] Relation to Subscriber:Self Name:Minh Jameson Subscriber ID:[id number] Payer ID:[id number] Group ID:Not on file Type:Medicare Address: SupportLocal [address] [place] [phone] [facility] MEDICARE ENHANCE SUPPLEMENT [facility] Address: [address] [place] [address] MEDICARE PART A & B [facility] MEDICARE ENHANCE SUPPLEMENT [facility] Address: [address] [place] [address] MEDICARE PART A & B [employer] MEDICARE ENHANCE SUPPLEMENT Care Teams Chief Deputy Sheriff Relationship Specialty Start Date End Date Kade Kelly DO [address] [place] [address] [email or web address] PCP - General Internal Medicine 10/31/24 Additional Source Comments The information contained in this document represents components of the legal health record. It is not the complete legal health record.[facility]
--- OUTSIDE RECORDS SUMMARY | 2025-06-25 17:52 | XMS_ITS | Encounter Summary ---
Author Organization [facility] Address [address] [place] [address] Phone Care Team Providers Care Rolled Materials Worker Name Role Phone Pcp, Not Required Primary Care Provider Unavaila ble Robin, Kade A DO Unavailable Bigda, Kade A DO Primary Care Provider [phone] Bigda, Kade A DO Unavailable Bigda, Kade A DO Primary Care Provider [phone] Encounter Details Date Type Department Care Team (Late st Contact Info) Description 09/18/2019 Transcribe Orders Virtual Department [address] [place] [address] Maria De Jesus Jacinto PA-C [address] [place] [address] [email or web address] Cough (Primary Dx) Social History Tobacco Use Types Packs/Day Years Used Date Smoking Tobacco: Never Assessed Sex and Gender Information Value Date Recorded Sex Assigned at Not on file Legal Sex Male 10:37 PM EDT Gender Identity Not on file Sexual Orientation Not on file documented as of this encounter Plan of Treatment Not on file documented as of this encounter Visit Diagnoses Diagnosis Cough- Primary documented in this encounter Care Teams Rolled Materials Worker Relationship Specialty Start Date End Date Pcp, Not Required [address] [place] [address] PCP - General 08/28/18 01/22/20 Kade Kelly DO [address] [place] [address] [place], [place] [id number] [email or web address] PCP - General Internal Medicine 01/23/20 10/30/24 Kade Kelly DO [address] [place] [address] PCP - General Internal Medicine 10/31/24 Kade Kelly DO [address] [place] [address] [email or web address] Insurance Assigned Provider 12/18/19 08/22/20 Kade Kelly DO [address] [place] [address] Insurance Assigned Provider 10/17/20 06/24/23 documented as of this encounter Additional Source Comments The information contained in this document represents components of the legal health record. It is not the complete legal health record.[facility]
--- OUTSIDE RECORDS SUMMARY | 2025-06-25 17:52 | XMS_ITS | Encounter Summary ---
Author Organization [facility] Address [address] [place] [address] Phone Care Team Providers Care Banana Handler Name Role Phone Pcp, Not Required Primary Care Provider Unavaila ble Bigda, Kade A DO Unavailable Bigda, Kade A DO Primary Care Provider [phone] Bigda, Kade A DO Unavailable Bigda, Kade A DO Primary Care Provider [phone] Encounter Details Date Type Department Care Team (Late st Contact Info) Description 08/30/2018 Transcribe Orders [facility] Specimen Processing [address] [place] [address] Gail Varela MD [address] [place] [address] Non-bullous impetigo (Primary Dx) Social History Tobacco [...] Description HAND LEFT ULNAR DORSAL HAND HAND [facility] Special Requests None [facility] GRAM STAIN NO ORGANISMS SEEN [facility] Culture/Test NO GROWTH 48HRS [facility] Report Status 09/01/2018 FINAL [facility] Other (Hand) 08/28/2018 5:27 PM EST 08/30/2018 4:24 PM EST us Gail Varela MD LAB MICROBIOLOGY CULTURE OR DERABLES Final Result [facility] [address] [place] [address] documented in this encounter Visit Diagnoses Diagnosis Non-bullous impetigo- Primary documented in this encounter Care Teams Banana Handler Relationship Specialty Start Date End Date Pcp, Not Required [address] [place] [id number] PCP - General 08/28/18 01/22/20 Kade Kelly DO [address] [place] [address] PCP - General Internal Medicine 01/23/20 10/30/24 Kade Kelly DO [address] [place] [address] PCP - General Internal Medicine 10/31/24 Kade Kelly DO [address] [place] [address] Insurance Assigned Provider 12/18/19 08/22/20 aKde Kelly DO [address] [place] [address] Insurance Assigned Provider 10/17/20 06/24/23 documented as of this encounter Additional Source Comments The information contained in this document represents components of the legal health record. It is not the complete legal health record.[facility]
--- OUTSIDE RECORDS SUMMARY | 2025-06-25 17:52 | XMS_ITS | Data Portability ---
Author Organization [facility], Telehealth Patient Home Address [address] [place] [address] Assessment Encounter Date Assessment Date Assessment LastModified by Organization Details LastModified Time 12/11/2024 12/11/2024 The patient presented to their appointment today for multiple concerns requiring moderate to high-level decision making and took over 40-45 minutes for an adequate and appropriate history, exam, assessment and treatment plan. This appointment was done with an established patient. [id number] or [id number] (FLOOR WINDER) [facility] HIGH MUST MEET 2 OUT OF 3 [...] THAT IS COVERED Not available 12/11/2024 16:16:21 12/17/2024 12/17/2024 [id number] [place] [id number] (FLOOR WINDER) [facility] HIGH MUST MEET 2 OUT OF 3 [...] done with an established patient. Not available 12/17/2024 12:19:47 01/13/2025 01/13/2025 [id number] [place] [id number] (FLOOR WINDER) MDM MODERATE MUST MEET 2 OUT OF [...] EACH ELEMENT THAT IS COVERED Not available 01/13/2025 15:13:11 03/25/2025 03/25/2025 The patient presented to their appointment today for multiple concerns requiring moderate to high-level decision making and took over 40-45 minutes for an adequate and appropriate history, exam, assessment and treatment plan. This appointment was done with an [place]. [id number] [place] [id number] (FLOOR WINDER) MDM HIGH MUST MEET 2 OUT OF [...] THOROUGHLY DOCUMENT EACH ELEMENT THAT IS COVERED .m Not available 03/25/2025 15:12:58 Plan of Treatment Reminders Order Date Submit Date Provider Last Modified By Organization Details Last Modified Time Details Appointments FOLLOW UP 15 2024 02:00P M DR ROMAN Not available Not available Not available Lab CMP, serum or plasma 2024 [facility], [address] [place] [address], [id number], 04/03/2025 12:58:57 CBC 2024 [facility], [address] [place] [address], [id number], 03/25/2025 15:19:49 vitamin B12, serum 2024 [facility], [address] [place] [address], [id number], 03/25/2025 15:19:48 ESR (erythroc yte sedimenta tion rate), blood 2024 [facility], [address] [place] [address], [id number], 03/25/2025 15:19:48 vitamin D, 25-hydrox y, total, serum 2024 [facility], [address] [place] [address], [address], 03/25/2025 15:19:49 C-reactiv e protein, quantitat bc, serum or plasma 2024 [facility], [address] [place] [address], [address], 03/25/2025 15:19:48 lyme disease igg+igm, serum, reflex western blot 2024 [facility], [address] [place] [address], [address], 03/25/2025 15:19:49 ehrlichio sis + anaplasmo sis + babesiosi s + borrelia miyamotoi DNA panel, serum, plasma or blood 2024 025 [facility], [address] [place] [address], [address], 04/17/2025 14:27:27 TSH, serum or plasma 2024 025 [facility], [address] [place] [address], [id number], 03/25/2025 15:19:49 hemoglobi n A1c, QN, blood 2024 025 [facility], [address] [place] [address], [address], 03/24/2025 07:00:35 CMP, serum or plasma 2024 025 [facility], [address] [place] [address], [address], 12/13/2024 12:53:15 hemoglobi n A1c, QN, blood 2024 025 [facility], [address] [place] [address], [address], 03/18/2025 11:58:24 C-peptide , serum 2024 025 [facility], [address] [place] [address], [address], 12/11/2024 16:20:22 insulin, serum 2024 025 [facility], [address] [place] [address], [address], 12/11/2024 16:20:22 Referral orthopedi c spine surgeon referral 2024 025 [facility], [address] [place] [address], [id number], 06/10/2025 10:47:17 Procedures None recorded. Surgeries None recorded. Imaging XR, cervical spine, 2 or 3 view 2024 025 [facility], [address] [place] [address], [id number], 04/08/2025 08:12:44 XR, hip + pelvis, bilateral 2024 025 [facility], [address] [place] [address], [id number], 04/01/2025 13:38:38 electromy ogram + nerve conductio n study - bilateral legs please do both legs 2024 025 [facility] Rob MD, [address] [place] [address], [address], 04/01/2025 09:38:55 US, lower leg 2024 025 [facility], [address] [place] [address], [address], 12/18/2024 08:16:32 Medication Orders pregabali n 75 mg capsule 2024 025 [id number], [address] [place], [address], 03/25/2025 15:18:25 benzonata te 200 mg capsule 2024 025 [id number], [address] [place], [address], 01/13/2025 14:41:38 Eliquis 5 mg tablet 2024 025 [id number], [address] [place], [address], 12/11/2024 16:14:03 Patient TargetsNo targets recorded. Patient Instructions Encounter Date Encounter Id Patient Instructions Last Modified By Organization Details Last Modified Time 12/11/2024 [id number] learning about high blood sugar Not available 12/11/2024 16:14:01 12/17/2024 [id number] complete PFT w/ post bronchodilator spirometry* hrubner Not available 12/24/2024 08:57:38 learning about type 2 diabetes Not available 12/17/2024 12:20:36 type 2 diabetes: care instructions Not available 12/17/2024 12:20:36 03/25/2025 [id number] neck pain: care instructions Not available 03/25/2025 15:19:44 hip pain: care instructions Not available 03/25/2025 15:21:43 learning about type 2 diabetes Not available 03/25/2025 15:18:22 type 2 diabetes: care instructions Not available 03/25/2025 15:18:22 neuropathic pain : care instructions Not available 03/25/2025 15:18:23 05/16/2025 [id number] pulse oximetry* Not available 05/16/2025 16:30:04 Reason for Referral Orthopedic Spine Surgeon Ref erral for Degenerative cervical spinal stenosis Referring Physician: Kade Roman, Internal Medicine, Encounter Date: 05/16/2025 Results Created Date Observation Date Name Description Value Unit Range Abnormal Flag Note LastModifiedBy Organization Detail LastModifiedTime 05/16/2005/16/2025 pulse oxime try* Result 98 Not Available [facility] [address] [facility] [address], [place], [address], 04/28/2025 16:31:33 11/29/19 25 11/25/2024 MRI, brain , w/o contr ast No observ ation record ed. [facility] [address] [facility], [place], [address], 11/28/2024 21:58:05 12/06/19 25 12/03/2024 US, duple x, arter ial, lower extre mity, compl ete No observ ation record ed. Not Available 2024 19:08:14 12/24/19 25 12/23/2024 US, duple x, arter ial, lower extre mity, compl ete No observ ation record ed. Not Available 2024 21:39:18 04/01/20 25 04/01/2025 XR, cervi cornell spine , 4 or 5 view No observ ation record ed. Not Available 2024 08:59:17 04/01/2004/01/2025 XR, hip + pelvi s, bilat eral No observ ation record ed. [email or web address] Not Available 04/07 08:50:12 04/23/2004/22/2025 elect romyo gram + nerve condu ction study No observ ation record ed. [facility] [address] [facility] [address], [place], [address], 04/23/2025 09:19:29 04/23/2004/22/2025 elect romyo gram + nerve condu ction study No observ ation record ed. juanjo [facility] [address] [facility] [address], [place], [address], 05/09/2025 16:10:42 04/24/20 25 04/24/2025 MRI, cervi cornell spine , w/o contr ast No observ ation record ed. [email or web address] [facility] [address] [place], [address], 04/24/2025 17:33:31 04/24/20 25 04/24/2025 MRI, cervi cornell spine , w/o contr ast No observ ation record ed. [email or web address] [address], [address], 04/28/2025 09:45:39 Result Notes None recorded. Problems Name Problem SNOMED Code Status Onset Date Resolution Date Notes Provider Name and Address Organization Details Recorded Time Impaired fasting glycemia 099172436 Completed 201704/29/2019 Kade Roman, DO [address] [place], [address], [facility] 9 14:13:08 Type 2 diabetes mellitus 70102019 Active 12/22 Jen Muhammad null, [facility] 5 09:05:14 Eczema 52795282 Active 2018 Jen mayen, [facility] 5 09:05:14 Low back pain 701905939 Active 2020 Not Available [facility] 3 15:02:30 Hypercho lesterol emia 81365104 Active 2020 Not Available [facility] 3 15:02:30 Deep venous thrombos is of lower extremit y 287427330 Completed 202101/12/2022 Removal Reason: resolved Kade Roman, DO [address] [place], [address], [facility] 2 14:03:44 Primary erectile dysfunct ion 065618572 Active 2021 Jen mayen, [facility] 5 09:05:14 Diffuse pain 7267929 Active 2021 Jen mayen, [facility] 5 09:05:14 Infectio n of tooth 990425025 Active 2021 Jen mayen, [facility] 5 09:05:22 Chronic sinusiti s 96448247 Active 2021 Jen mayen, [facility] 5 09:05:14 Osteoart hritis 603697808 Active 2021 eJn mayen, [facility] 5 09:05:14 Gingivit is 43395377 Active 2022 Jen mayen, [facility] 5 09:05:22 Deep venous thrombos is of lower extremit y 792037186 Active 2022 Jen Muhammad null, [facility] 5 09:05:14 Anxiety 51147897 Active 2022 Jen Muhammad null, [facility] 5 09:05:14 Fatigue 51839472 Active 2022 Jen Muhammad null, [facility] 5 09:05:22 Lacerati on of finger of right hand 8894322409 0673184 Active 2022 Jen Muhammad null, [facility] 5 09:05:22 Erectile dysfunct ion 359817670 Active 2022 Jen Muhammad null, [facility] 5 09:05:14 Type 2 diabetes mellitus without complica tion 391269553 Active 2023 Jen Muhammad null, [facility] 5 09:05:14 Epps's neuroma of right foot 2767435142 93517 Active 2023 Jen Muhammad null, [facility] 5 09:05:14 Intermit tent claudica tion 66474377 Active 2023 Jen Muhammad null, [facility] 5 09:05:14 Inflamma tory polyarth ropathy 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 Active 2023 Jen Muhammad null, [facility] 5 09:05:14 Cough 84500302 Active 2024 Jen Muhammad null, [facility] 5 09:05:22 Neuropat hy 998686818 Active 2024 Jen Muhammad null, [facility] 5 09:05:14 Atypical chest pain 673315163 Active 2024 Jen Muhammad null, [facility] 5 09:05:14 Tachycar frederic 3086658 Active 2024 Jen Muhammad null, [facility] 5 09:05:14 Muscle pain 29136342 Active 2024 Jen Muhammad null, [facility] 5 09:05:14 Excessiv e thirst 20963419 Active 2024 Jenricki Muhammad null, [facility] 5 09:05:22 Weakness of bilatera l lower limb Active 2024 Kade Roman, DO [address] [place] [address], [address], [facility] 5 15:05:19 Headache 27749145 Active 2024 Kade Roman, DO [address] [place] [address], [address], [facility] 5 15:05:48 Cyst of abdomen 672022158 Active 2024 Kade Roman, DO [address] [place] [address], [address], [facility] 5 15:19:27 Hypergly cemia 98186535 Active 2024 Kade Roman, DO [address] [place] [address], [address], [facility] 5 16:06:10 Pulmonar y embolism 06374599 Active 2024 Kade Roman, DO [address] [place] [address], [address], [facility] 5 16:10:25 Persiste nt cough 619565775 Active 2024 Kade Roman DO [address] [place] [address], [address], [facility] 5 12:10:54 Atrial fibrilla tion 28031494 Active 2024 Kade Roman DO [address] [place] [address], [address], [facility] 5 12:15:07 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 Active 2024 Kade Roman, DO [address] [place] [address], [address], [facility] 12:17:20 Acute deep vein thrombos is of lower limb 0793287084 08 Active 2024 Kade Roman, DO [address] [place] [address], [address], [facility] 12:18:31 Costal chondrit is 17412680 Active 2024 Kade Roman, DO [address] [place] [address], [address], [facility] 14:12:11 Neck pain 21948442 Active 2024 Kade Roman, DO [address] [place] [address], [address], [facility] 15:19:01 Pain of hip region 17896074 Active 2024 Kade Roman, DO [address] [place] [address], [address], [facility] 15:20:51 Bilatera l trochant rick bursitis 4471590692 1399323 Active 2024 Kade Roman, DO [address] [place] [address], [address], [facility] 22:47:55 Stenosis of interver tebral foramina 6388770093 09 Active 2024 Kade Roman, DO [address] [place] [address], [address], [facility] 22:51:18 Spinal cord compress ion 37048869 Active 2024 Kade Roman, DO [address] [place] [address], [address], [facility] 20:54:52 Degenera tive cervical spinal stenosis 605006050 Active 2024 Kade PettyKannan Roman, [address] [place], [address], [facility] 5 16:27:08 Problem Notes None recorded. Procedures Surgical History Date Name Laterality Status Provider Name and Address Organization Details Recorded Time 3 Suture/Stap le removal completed ALEXSANDER SABILLON [address] [place], [address], [facility] 02/15/2023 16:27:37 Imaging Results None recorded. Procedure Notes None recorded. Medical Equipment None Reported. Allergies Allergen ID Allergen Name Allergen Category Reaction Reaction Severity Criticality Documentation Date Start Date Code Code System Note Provider Name and Address Organization Details Recorded Time 2129 codeine medicatio n Not available Not available Not available 03/26/2018 2670 [facility] 8 16:10:07 2130 Product containin g 3-hydroxy -3-methyl glutaryl- coenzyme A reductase inhibitor (product) medicatio n Not available Not available Not available 03/26/2018 47364 009 [facility]ED [facility] 8 16:10:15 8702 Zithromax medicatio n Not available Not available Not available 09/11/2024 59132 4 RxNorm ALEXSANDER SABILLON [address] [place], [address], [facility] 5 14:17:27 Medications Name Sig Start Date [...] 3 TIMES A DAY BY ORAL ROUTE NEEDED FOR 7 DAYS, FOR COUGH. 01/13 completed Not Available Not Available Not Available [...] Not Available Not Available Not Available hydrocodone 10 mg-acetamin ophen 325 mg tablet TAKE 1 TABLET 3 TIMES A DAY BY ORAL ROUTE NEEDED FOR 7 DAYS, FOR CHEST PAIN FROM COUGH. 01/13 completed Not Available Not Available Not Available [...] CAPSULE BY MOUTH ONE TIME PER WEEK active Not Available Not Available No t Available ibuprofen 600 mg tablet TAKE 1 [...] Not Available Not Available No t Available pregabalin 75 mg capsule TAKE 1 CAPSULE BY MOUTH TWICE A DAY FOR 30 DAYS active Not Available Not Available No [...] 1 TABLET BY MOUTH TWICE A DAY active Not Available Not Available No t Available Fluzone High-Dose 1921-6976 (PF) 180 mcg/0.5 mL intramuscul ar syringe [...] Not Available No t Available Fluzone High-Dose 5491-2719 (PF) 180 mcg/0.5 mL intramuscul ar syringe [...] in Arterial blood by Pulse oximetry Systolic And Diastolic Provider Name and Address Organization Details Last Updated DateTime 5 181.61 cm 23.2 kg/m2 74771.1 1 g 71 /min 96 % 96 % 120/68 mm[Hg] Yue [facility] 5 15:40:25 Date Recorded Body height Body mass index (BMI) Body weight Heart rate Oxygen saturation Oxygen saturation in Arterial blood by Pulse oximetry Systolic And Diastolic Provider Name and Address Organization Details Last Updated DateTime 5 181.61 cm 26 kg/m2 77259.9 6 g 73 /min 99 % 99 % 140/80 mm[Hg] Yue Harshad [facility] 5 11:54:37 Date Recorded Body height Body mass index (BMI) Body weight Oxygen saturation Oxygen saturation in Arterial blood by Pulse oximetry Heart rate Systolic And Diastolic Provider Name and Address Organization Details Last Updated DateTime 5 181.61 cm 23.1 kg/m2 83314.5 2 g 98 % 98 % 65 /min 124/66 mm[Hg] Leslie Gao [facility] 5 14:44:41 Date Recorded Body height Body mass index (BMI) Body weight Oxygen saturation Oxygen saturation in Arterial blood by Pulse oximetry Heart rate Systolic And Diastolic Provider Name and Address Organization Details Last Updated DateTime 5 181.61 cm 23.7 kg/m2 56815.8 9 g 98 % 98 % 71 /min 128/74 mm[Hg] Leslie Gao [facility] 5 14:49:14 Date Recorded Body height Body mass index (BMI) Body weight Oxygen saturation Oxygen saturation in Arterial blood by Pulse oximetry Heart rate Systolic And Diastolic Provider Name and Address Organization Details Last Updated DateTime 5 181.61 cm 24.5 kg/m2 61424.4 4 g 98 % 98 % 64 /min 124/70 mm[Hg] [facility] 5 16:00:36 Social History Question Answer Notes LastModified by Organizat ion Details LastModified Time Tobacco Smoking Status Never Smoker Not Available [facility] 06/16/2020 03:36:23 What Was The Date Of Your Most Recent Tobacco Screening? 05/16/2025 [email or web address] Information not available 05/16/2025 Sex: Unknown Functional Status Question Answer Note LastModified by Organization D etails LastModified Time Do you or have you ever used any other forms of tobacco or nicotine? No Information not available 01/12/2022 Mental Status None recorded. Family History Nothing Reported. Medical History No medical history recorded. Immunizations Vaccine Type Date Status Note Provider Nam e and Address Organization Details Recorded Time Influenza, split virus, quadrivalent, preservative 8 completed Dennise mayen [facility] 05/14/2018 08:09:52 COVID-19, mRNA, LNP-S, PF, 30 mcg/0.3 mL dose 1 completed Chasity Ledesma [facility] 01/12/2022 14:14:23 COVID-19, mRNA, LNP-S, PF, 30 mcg/0.3 mL dose 1 [facility] 01/12/2022 14:14:30 Influenza, split virus, quadrivalent, preservative 1 completed Chasity mayen, [facility] 01/12/2022 14:14:43 zoster recombinant 1 [facility] 01/12/2022 14:14:59 COVID-19, mRNA, LNP-S, PF, 30 mcg/0.3 mL dose 2 [facility] 06/15/2022 11:04:20 COVID-19, mRNA, LNP-S, PF, 30 mcg/0.3 mL dose 2 completed Chasity Ledesma [facility] 06/15/2022 11:04:28 Influenza, split virus, quadrivalent, preservative 2 completed Milagro Barker [facility] 06/15/2022 11:04:33 influenza, unspecified formulation 3 completed Kade Roman, DO [address] [place] [address], [place], [address], [facility] 04/27/2023 14:55:50 SARS-COV-2 (COVID-19) vaccine, UNSPECIFIED 3 completed Paradise Corona [facility] 05/15/2023 15:40:49 Influenza, [place] 4 completed Navi Roman [facility] 04/26/2024 10:41:34 influenza, unspecified formulation 5 completed Jen Muhammad [facility] 04/25/2025 09:04:43 Influenza, split virus, quadrivalent, preservative 9 completed Chasity mayen [facility] 07/31/2019 14:35:38 Influenza, split virus, quadrivalent, preservative 0 completed Chasity mayen [facility] 04/01/2020 09:19:55 COVID-19, mRNA, LNP-S, PF, 30 mcg/0.3 mL dose 0 completed Chasity mayen [facility] 01/27/2021 09:48:11 COVID-19, mRNA, LNP-S, PF, 30 mcg/0.3 mL dose 1 completed Chasity mayen [facility] 01/27/2021 09:48:20 Past Encounters Encounter ID Performer Location Encounter Start Date Encounter Closed Date Diagnosis/Indication Diagnosis SNOMED-CT Code Diagnosis ICD10 Code Diagnosis IMO Codes Diagnosis Note [id number] Kade Roman [address],[place] [address] 03/27/2018 11:20:45 03/30/2018 09:07:56 Deep venous thrombosis of lower extremity 491523440 I82.402 eliquis 6 months Insect bite - wound 2764 18966 T14.8XXA 2/5 bites appear infected will treat [id number] Kade Roman [address],[place] [address] 06/27/2018 13:46:02 06/27/2018 14:51:46 Deep venous thrombosis of lower extremity 573427799 I82.402 d/c in another 3 months Impaired f asting glycemia 294694591 R73.01 [id number] Kade Roman [address],[place] [address] 07/31/2018 13:51:58 08/03/2018 12:27:42 Impaired fasting glycemia 374788830 R73.01 do today please Pruritic rash 87560199 L 28.2 Moisturize after shower and before bed, stay hydrated Skin lesion 51833336 L98 .9 on ankle only [id number] Kade Roman DO [facility] [address] [facility] [address] [address] 08/24/2018 13:56:48 08/24/2018 15:25:42 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 valacyclov ir and has a secondary cellulitis will giv e keflex [id number] Kade Canseco Baltazarkrista [facility] [address] [facility] [address] [address] 08/28/2018 11:34:09 08/28/2018 12:20:51 Disseminated herpes zoster 58003931 B02.7 valacyclov ir and has a secondary cellulitis will giv e keflex but has not improved to any signif effect so we will ask a dermatolog ist to see him arlene [id number] Kade Canseco Robin [facility] [address] [facility] [address] [address] 10/10/2018 15:27:52 10/10/2018 16:29:25 Cramp in lower limb 499778697 R25.2 magnesium and potassium Deep venou s thrombosis of lower extremity 721696939 I82.409 is back on eliquis Eczema 45346829 L30.[address] el morris working [facility] er ectile dysfunction 790438224 N52.9 has been having difficulty will try sildenafil [id number] Kade Harleen Roman [facility] [address] [facility] [address] [facility] [address] 04/29/2019 13:41:58 04/29/2019 14:26:42 Type 2 diabetes mellitus 54456522 E11.9 long detailed discussion s >20 min Eczema 86427043 L30.[address] el morris working [facility] [id number] Kade Roman [facility] [address] [facility] [address] [address] 07/31/2019 14:32:22 07/31/2019 15:06:41 Type 2 diabetes mellitus 57774858 E11.9 long detailed discussion s >20 min re diet and exercise relates that he has lost almost 20 lbs Eczema 37333622 L30.[address] el morris working good [id number] Kade Roman [facility] [address] [facility] [address] [facility] [address] 09/18/2019 14:30:19 09/18/2019 14:58:45 Type 2 diabetes mellitus 33569989 E11.9 Deep venou s thrombosis of lower extremity 841028208 I82.409 d/c in another 3 months Cough 86915026 R05 [id number] Kade Roman [facility] [address] [facility] [address] [address] 12/31/2019 11:44:14 12/31/2019 12:14:11 Abscess of groin 25800552 L02.214 will need anbiot and a referral to gen surg for I and D [id number] Kade Roman [facility] [address] [facility],[place] [address] 01/22/2020 14:18:57 01/22/2020 15:04:40 Infection of sebaceous cyst 753147723 L72.3 we need to have this removed so we will refer Unintentio nal weight loss 378929516 R63.4 but seems to have stabilized no overt issues otherwise [id number] Kade Roman [facility] Medicine [address] [facility] [address],[place] [address] 06/15/2020 13:51:53 06/15/2020 15:08:48 Type 2 diabetes mellitus 05243758 E11.9 long detailed discussion s >20 min re diet and exercise relates that he had lost almost 20 lbs but has gained bacepatihk a lot and gluc up to a1c 6.1 Primary er ectile dysfunction 602823755 N52.9 has been having difficulty will continue sildenafil [id number] Kade Roman [facility] Internal Medicine [address] [facility] [address] [address] [place] [facility] [address] 10/06/2020 14:26:56 10/06/2020 15:06:28 Type 2 diabetes mellitus 60652687 E11.9 long detailed discussion s >20 min re diet and exercise relates that he had lost almost 20 lbs but has gained bacepatihk a lot and gluc up to a1c 6.1 Low back pain 802112976 M54.5 prob latissimus strain from excessive mopping at work told to take ibuprof and tylenol and to use this tid for 1 week and see if this is ok Eczema 11003021 L30.[address] gallegos [facility] working good [id number] Kade Roman [facility] Internal Medicine [address] [facility] [address],[place] [address] 02/01/2021 14:53:44 02/01/2021 15:55:36 Type 2 diabetes mellitus 98817970 E11.9 long detailed discussion s >20 min re diet and exercise relates that he had lost almost 20 lbs but has gained back his wgt and gluc up to a1c 7.0we will discuss on better diet and better way of treatment if he stays high Primary er ectile dysfunction 988781768 N52.9 has been having difficulty will continue sildenafil Deep venou s thrombosis of lower extremity 715740057 I82.409 is back on eliquis Hypercholesterolemia 136 16648 E78.00 told him that he needs to be more careful he is not interested in starting a med we will rechk in may Kade Roman [facility] Internal Medicine [address] [facility],[place] [address] 06/11/2021 14:31:36 06/11/2021 14:59:46 Type 2 diabetes mellitus 81284661 E11.9 long detailed discussion s >20 min re diet and exercise we will discuss on better diet and better way of treatment if he stays high Hypercholesterolemia 136 45627 E78.00 told him that he needs to be more careful he is notable to take statins due to liver irritation [id number] Kade Roman [facility] Internal Medicine [address] [facility] [address],[place] [address] 10/11/2021 13:44:54 10/12/2021 15:08:55 Type 2 diabetes mellitus 52641537 E11.9 long detailed discussion s >20 min re diet and exercisea1 c is 7.7we will discuss on better diet and better way of treatment if he stays high Hypercholesterolemia 136 44651 E78.00 told him that he needs to be more careful he is notable to take statins due to liver irritation discussed at length Deep venou s thrombosis of lower extremity 276467118 I82.409 is back on eliquis [id number] Kade Roman DO [facility] Internal Medicine [address] [facility],[place] [address] 01/12/2022 13:42:25 01/12/2022 15:08:58 Hypercholesterolemia 25403331 E78.00 told him that he needs to be more careful he is notable to take statins due to liver irritation discussed at length Type 2 frederic betes mellitus 46775755 E11.9 long detailed discussion s >20 min re diet and exercisea1 c is 7.5 still ok was 7.7 needs to get back to 6'swe will discuss on better diet and better way of treatment if he stays high Depression screening 171 091473 Z13.31 score of 1 Active or passive immunization 130845831 Z23 patient advised of due vaccines (tdap, pneu 13 & 23, shingles) Eczema 82173563 L30.[address] el morris working good Low back pain 397543914 M54.50 symptoms seem to be better than in the winter Primary er ectile dysfunction 989099119 N52.9 has been having difficulty will continue sildenafil [id number] Kade Roman DO [facility] Internal Medicine [address] [facility],[place] [address] 04/26/2022 14:02:04 04/26/2022 15:55:16 Type 2 diabetes mellitus 00624021 E11.9 long detailed discussion s >20 min re diet and exercisea1 c is still 7.5 and before this was 7.5 still ok was 7.7 needs to get back to 6'swe will discuss on better diet and better way of treatment if he stays high Eczema 62082688 L30.[address] el morris working good doing great now Diffuse pain 8105391 R52 having bilateral knee and hip and flank pain all of these areas are directly on bony prominence s [id number] Kade Roman DO [facility] Internal Medicine [address] [facility] [address],[place] [address] 05/13/2022 15:01:41 05/13/2022 16:31:02 Infection of tooth 405878823 K04.7 he will be on cefdinir Chronic sinusitis 706831 00 J32.9 he understand s to call if he gets any diarrhea etc Osteoarthritis 817007133 M19.90 noted multiple areas we will try to treat as we need will use prn nsaid and see how he does [id number] Kade Roman DO [facility] Internal Medicine [address] [facility],[place] [address] 10/10/2022 14:50:55 10/10/2022 15:41:10 Type 2 diabetes mellitus 88253950 E11.9 re need for good scheduled eating [...] Deep venou s thrombosis of lower extremity 209452520 I82.[address] [place] Advance care planning 71 4565201 Z71.89 utd Gingivitis 30859185 K05. 10 Anxiety 64273883 F41.9 will use as back up [id number] Kade oRman DO [facility] Internal Medicine [address] [facility],[place] [address] [facility] [place] 7 11/14/2022 15:06:27 11/14/2022 15:56:45 Anxiety 05039121 F41.9 will use as back up Type 2 frederic betes mellitus 89552141 E11.9 he needs to do the a1c [...] of treatment if he stays high Fatigue 81468479 R53.83 having muscle pain as well having a hard time [id number] Kade Roman DO [facility] Internal Medicine [address] [facility] [address],[place] 7 02/15/2023 15:32:45 02/17/2023 09:03:21 Removal of suture 66979154 Z48.02 removed Laceration of finger of right hand 1402909766 5725766 S61.210D removed [id number] Kade Roman DO [facility] Internal Medicine [address] [facility],[place] [address] 03/31/2023 14:46:05 03/31/2023 16:04:48 Type 2 diabetes mellitus 68288099 E11.9 a1c is down to 6.7!!!!! from 7.8 PRIOR : re need for good scheduled eating and not skipping meals long discussion discussed cont to eat good diet h [id number] is still 7.5 and before this was 7.5 still ok was 7.7 needs to get back to 6'swe will discuss on better diet and better way of treatment if he stays high Osteoarthritis 780989837 M19.90 noted multiple areas we will try to treat as we need we will cont to use the meloxicam as needed [id number] Kade Roman DO [facility] Internal Medicine [address] [facility],[place] [address] 07/10/2023 14:08:44 07/10/2023 14:51:17 Hypercholesterolemia 32134960 E78.00 told him that he needs to be more careful he is notable to take statins due to liver irritation discussed at length Type 2 frederic betes mellitus 79147296 E11.9 a1c is now up to 7.1 due to diet indiscreti on PRIOR :long discussion re need for better diet.re need for good scheduled eating and not skipping meals long discussion discussed cont to eat good diet h Erectile dysfunction 860 486624 F52.21 he will try this as the sildenafil was not too helpful [id number] Kade Roman DO [facility] Internal Medicine [address] [facility],[place] [address] 09/13/2023 08:27:18 09/13/2023 16:37:42 Type 2 diabetes mellitus without complication 486386251 E11.9 not controlled and has gained weight 5lbs and a1c has gone upsee below he will manage with diet control Deep venou s thrombosis of lower extremity 606561794 I82.409 resolved Type 2 frederic betes mellitus 93205968 E11.9 a1c is now up to 7.7 was 7.1 due to diet indiscreti on PRIOR :long discussion re need for better diet.re need for good scheduled eating and not skipping meals long discussion discussed cont to eat good diet h Fatigue 76406713 R53.83 relates this happens with elevated glucose Eczema 67098296 L30.[address] gallegos [facility] working good doing great now [id number] Kade Roman [facility] Internal Medicine [address] [facility],[place] [address] 01/15/2024 14:50:17 01/15/2024 15:59:33 Depression screening 809215257 Z13.31 Type 2 frederic betes mellitus 41694599 E11.9 a1c is now up to 7.7 was 7.1 due to diet indiscreti on PRIOR :long discussion re need for better diet.re need for good scheduled eating and not skipping meals long discussion discussed cont to eat good diet 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 04308 G57.61 referral to kiki Intermitte nt claudication 96953418 I73.9 needs a vascular study [id number] Kade Roman [facility] Internal Medicine [address] [facility],[place] [address] 04/26/2024 14:11:54 04/26/2024 14:51:17 Adult health examination 940518439 Z00.01 here and is doing ok overall Screening for cardiovascular system disease 089864200 Z13.6 Screening for malignant neoplasm of colon 884441769 Z12.11 Hypercholesterolemia 136 15524 E78.00 told him that he needs to be more careful he is notable to take statins due to liver irritation discussed at length Intermitte nt claudication 96937373 I73.9 needs a vascular study Type 2 frederic betes mellitus 94900590 E11.9 a1c is now up to 7.7 was 7.1 due to diet indiscreti on PRIOR :long discussion re need for better diet.re need for good scheduled eating and not skipping meals long discussion discussed cont to eat good diet h Inflammato ry polyarthropathy 480627946 M06.4 Erectile dysfunction 860 777235 F52.21 he will try this as the sildenafil was not too helpful [id number] Kade Roman [facility] Internal Medicine [address] [facility], [place] [address] 09/11/2024 13:48:00 09/11/2024 14:28:24 Neuropathy 465791936 G62.89 nerve pain throughout , radiates from the low back Atypical chest pain 1025 77988 R07.89 agreed to work [employer] ded CT and EKG assessment to r/o cardiac etiology Type 2 frederic betes mellitus 20205225 E11.9 needs lab work Tachycardia 9585633 R00. 0 racing heart, no arrhythmia detected [id number] Kade Roman [facility] Internal Medicine [address] [facility], [place] [address] 09/17/2024 10:20:02 09/17/2024 12:21:32 Type 2 diabetes mellitus 66890218 E11.65 will set up with standing orderscont on metforminr [facility] in a few weeks to see how his glucose levels Muscle pain 88407070 M79 .18 worsened by excess sugar Excessive thirst 4317857 7 R63.1 related to the sugar [id number] Kade Roman [facility] Internal Medicine [address] [facility], [place] [address] 10/25/2024 14:29:01 10/25/2024 15:24:59 Depression screening 135738530 Z13.31 equiv Weakness o f bilateral lower limb 8924772729 52228 M62.81 here and worried about the pain legs getting worse and episodes of weakness are becoming more frequent Headache 27890031 R51.9 Cyst of abdomen 01195215 0 R19.00 [id number] Kade Roman [facility] Internal Medicine [address] [facility], [place] [address] 12/11/2024 15:29:14 12/11/2024 16:23:50 Deep venous thrombosis of lower extremity 197432553 I82.409 resolved Hypercholesterolemia 136 96791 E78.00 told him that he needs to be more careful he is notable to take statins due to liver irritation discussed at length Type 2 frederic betes mellitus 18659550 E11.65 a1c is now up to 7.7 was 7.1 due to diet indiscreti on PRIOR :long discussion re need for better diet.re need for good scheduled eating and not skipping meals long discussion discussed cont to eat good diet h Depression screening 171 070814 Z13.31 equiv Hyperglycemia 74538852 R 73.9 23092 need to differenti ate type 1 form 2 given recent wgt loss in setting of a1c of 8.9 Pulmonary embolism 85403 003 I26.99 992533 long detailed discussion will be getting a pft and echo and leg US next visit [id number] Kade Roman [facility] Internal Medicine [address] [facility],[place] [address] 12/17/2024 11:48:29 12/17/2024 12:24:48 Persistent cough 834246699 R05.3 086858 believe secondary to the pulm embolism Pulmonary embolism 33228 003 I26.99 313039 long detailed discussion will be getting a pft and leg US Acute deep vein thrombosis of lower limb 4733060012 08 I82.4Y1 41023909 resolved Type 2 frederic betes mellitus 33249483 E11.65 a1c is now up to 8.7 reviewed lab and noted insulin an c peptide levels was 7.1 due to diet indiscreti on PRIOR :long discussion re need for better diet.re need for good scheduled eating and not skipping meals long discussion discussed cont to eat good diet h [id number] Kade Roman [facility] Internal Medicine [address] [facility],[place] [address] 01/13/2025 14:33:11 01/13/2025 15:55:28 Depression screening 556256012 Z13.31 equiv Hypercholesterolemia 136 65136 E78.00 told him that he needs to be more careful he is notable to take statins due to liver irritation discussed at length Type 2 frederic betes mellitus 88849305 E11.65 a1c is now at 8.6 was up to 8.7 reviewed lab and noted insulin an c peptide levels was 7.1 due to diet indiscreti on PRIOR :long discussion re need for better diet.re need for good scheduled eating and not skipping meals long discussion discussed cont to eat good diet h [id number] Kade Roman DO [facility] Internal Medicine [address] [facility],[place] [address] 03/25/2025 14:39:13 03/25/2025 15:32:14 Intermittent claudication 77299736 I73.9 needs a vascular study Neuropathy 324405706 G62 .89 Type 2 frederic betes mellitus 50658280 E11.65 a1c is now at 6.1 8.6 was up to 8.7 reviewed lab and noted insulin an c peptide levels was 7.1 due to diet indiscreti on PRIOR :long discussion re need for better diet.re need for good scheduled eating and not skipping meals long discussion discussed cont to eat good diet h Neck pain 09634742 M54.2 045854 Pain of hip region 15004 002 M25.551 M25.552 [id number] [facility] [address] [facility],[place] [address] 05/16/2025 15:44:49 05/16/2025 16:45:07 Depression screening 632094119 Z13.31 equiv Atrial fibrillation 4943 6004 I48.91 Type 2 frederic betes mellitus without complication 368878142 E11.9 not controlled and has gained weight 5lbs and a1c has gone upsee below he will manage with diet control Degenerati ve cervical spinal stenosis 376351584 M48.02 509288 Health Concerns Section Related Observation LastModified by Organization Detai ls LastModified Time None Recorded Concern Status LastModified by Organization Details LastModified Time None Recorded Advance Directives Directive None Recorded Payers Insurance Date Sequence Insurance Name Policy Number Policy Falcon Covered Member ID Falcon Member ID Guarantor Name 05/16/2025 1 MEDICARE B-UT: [employer] Minh Jameson [id number] Minh Jameson 05/16/2025 2 [facility] [employer] [facility] (PPO) [id number] Minh Jameson [id number] Minh Jameson 05/16/2025 2 [facility] HEALTH [facility] (HMO) [id number] Minh Jameson [id number] Minh Jameson 05/16/2025 1 [facility] HEALTH [facility] (POS) [id number] Minh Jameson [id number] Minh Jameson 05/16/[address] [facility]ERR[facility] (MEDICARE SUPPLEMENT) [id number] Minh Jameson [id number] Minh Jameson 05/16/2025 2 [facility] Minh Pickard Jameson [id number] Minh Jameson Notes Date Note Type Note Provider Name and Address Organization Details Recorded Time 025 text/ht ml Care Management - DiabetesReported by PatientHPIFor self care, patient reportsseeing eye doctor yearly for dilated eye exam,checking feet regularly,normal range of home blood sugars (in the low 100s), andno side effects from medications. For associated symptoms, patient reportssymptoms are usually well controlled,no fatigue,no dizziness,no excessive sweating,no headaches,no confusion,no increased thirst,no increased appetite,no increased urination,no blurred vision,no numbness of feet, andno calluses on feet. Care Management - HyperlipidemiaReported by PatientHPIFor control, patient reportsusually well controlled,improving, andat goal. For complications, patient reportsno coronary artery disease,no heart attack,no cardiovascular disease,no pancreatitis, andno stroke.ROS as noted in the HPI here for lux and is doing better since his admission for bilat pulm embolino leg swelling prior but had large dvt in right leg !! Kade Roman DO [address] [facility], [place], [address], [facility] Internal Medicine 12/11/2024 16:16:39 025 text/ht ml ROS as noted in the HPI here for lux andis doing ok overallrelates that he has been getting the cp at this time not as bad but was disch in stable conditionpain was initiated by bad coughing and this pain was severe from shoulder down to lower rib cage states he is eating good and veggiesstaying away from junk but has some on occ Kade Roman DO [address] [facility], [place], [address], [facility] Internal Medicine 01/13/2025 15:49:45 025 text/ht ml ROS as noted in the HPI having pain episodes that start in his feet and roll up both legs and then up to hips and finally up to his spine and to base of headthis pain is debilitating and is now happening every few days and even at night Kade Roman DO [address] [place], [address], [facility] Internal Medicine 03/25/2025 15:29:29 025 text/ht ml Care Management - DiabetesReported by PatientHPIFor self care, patient reportsseeing eye doctor yearly for dilated eye exam,checking feet regularly,normal range of home blood sugars (in the low 100s), andno side effects from medications. For associated symptoms, patient reportssymptoms are usually well controlled,no fatigue,no dizziness,no excessive sweating,no headaches,no confusion,no increased thirst,no increased appetite,no increased urination,no blurred vision,no numbness of feet, andno calluses on feet. Care Management - Atrial FibrillationReported by PatientCare ManagementFor medications, patient reportscompliant with medication. For prior imaging, patient reportsechocardiogramandrecent ecg.Interim HistoryFor associated symptoms, patient reportsno dizziness,no chest pain,no easy bruisability, andno rapid heart rate.ROS as noted in the HPI Kade Roman DO [address] [facility], [place], [address], [facility] Internal Medicine 05/16/2025 16:32:30
== END 2025-06-25 14:17 | disposition home or self-care (01) ==
LOC: HO.WFDLDS 14:16
PROVIDERS: Visit Provider Internal Medicine
DX: E11.65 Type 2 diabetes mellitus with hyperglycemia (principal)
CPT/HCPCS: 36415; 83036